=== PATIENT | female | born 1990 | race Caucasian/White ===

== ENCOUNTER 2021-11-29 12:15 | Emergency (ER) | payer OTHER, SELFPAY ==
[2021-11-29 12:59] VITALS: BP 145/70; PULSE 65; RESP 16; TEMP 36.4; O2SAT 100; BMI 30.2
--- NOTE | 2021-11-29 13:02 | ECG_ITS ---
Test Reason : cp Blood Pressure : / mmHG Vent. Rate : 062 BPM Atrial Rate : 062 BPM P-R Int : 146 ms QRS Dur : 084 ms QT Int : 402 ms P-R-T Axes : 042 051 038 degrees QTc Int : 408 ms Normal sinus rhythm Normal ECG No previous ECGs available Referred By: Generic ED Physician Electronically Signed By:JOE RECINOS
[2021-11-29] MEDS: 0.9 % Sodium Chloride 1,000 ML 999 ML IV (14:51)
[2021-11-29 15:14] LABS: MANUAL DIFF FLAG NO
[2021-11-29 15:26] LABS: Basophils Percent Auto 0.3 % (0-2); Eosinophils Percent Auto 1.2 % (0-4); Hematocrit 34.3 % (37.0-47.0); Hemoglobin 11.4 g/dl (12.0-16.0); Imm Gran Abs Auto 0.01 X10*3/uL (0.00-0.03); Imm Gran Pct Auto 0.3 % (0.0-0.4); Lymphocytes Absolute Auto 1.3 X10*3/uL (1.2-4.9); Lymphocytes Percent Auto 40.4 % (20-40); Mean Corpuscular HGB Conc 33.2 g/dl (31.0-35.0); Mean Corpuscular Hemoglobin 30.6 pg (27.0-33.0); Mean Corpuscular Volume 92.2 fL (80.0-98.0); Mean Platelet Volume 11.1 fL (9.4-12.3); Monocytes Absolute Auto 0.4 X10*3/uL (0.1-1.2); Monocytes Percent Auto 12.1 % (2-11); Neutrophils Absolute Auto 1.5 x10*3/uL (2.0-8.3); Neutrophils Percent Auto 45.7 % (45-73); Platelet Count 209 X10*3/uL (160-400); Red Blood Count 3.72 X10*6/uL (4.20-5.50); Red Cell Distribution Width 11.9 % (11.0-16.0); White Blood Count 3.2 X10*3/uL (4.8-10.8)
--- NOTE | 2021-11-29 15:34 | ED.GENADULT ---
HPI - General Adult General Chief complaint: General Medical Stated complaint: forearm pain/thigh pain/cold symptoms Time Seen by Provider: 11/29/21 14:10 Source: patient Mode of arrival: ambulatory History of Present Illness HPI narrative: 30-year-old female with no significant past medical history presenting to the ED complaining of generalized fatigue/malaise, myalgias, acute on chronic low back pain x few days. Reports her kids recently tested positive for COVID-19, has been testing daily and negative. Also reports recent RSV exposure, and is outside frequently for work, unknown tick or insect bites. Denies headache, vision change, weakness, numbness, abdominal pain, nausea/vomiting, CP/SOB, incontinence/retention Onset (ago): day(s) Related Data Previous Rx's Medication Instructions Recorded doxycycline hyclate 100 mg tablet 100 mg PO BID 7 days #14 tabs 11/29/21 Allergies Allergy/AdvReac Type Severity Reaction Status Date / Time fentanyl [Fentanyl] Allergy Mild RASH Verified 11/29/21 12:59 Penicillins Allergy Mild RASH Verified 11/29/21 12:59 Review of Systems Review of Systems: Constitutional: No Fever, No Chills, No Night Sweats, + Fatigue, + Malaise ENT/Mouth: No Hearing loss, No Ear Pain, No Nasal Congestion, No Sinus Pain, No Hoarseness, No sore throat, No Rhinorrhea, No Swallowing Difficulty Eyes: No Eye Pain, No Swelling, No Redness, No Vision Changes Cardiovascular: No Chest Pain, No SOB, No Edema, No Palpitations Respiratory: No Cough, No Sputum, No Dyspnea Gastrointestinal: No Nausea, No Vomiting, No Diarrhea, No Constipation, No Abdominal pain Genitourinary: No Dysuria, No Urinary Frequency, No Hematuria, No Urinary Incontinence/retention, No Urgency, No Flank Pain Musculoskeletal: No joint pain, + Myalgias, + Joint Swelling Skin: No Skin Lesions, No rash Neuro: No Weakness, No Numbness, No Dizziness, No Headache Yes all other systems are reviewed and are negative Constitutional: Constitutional: Reports as per [facility] Past Medical History Attestation statement: The following information was validated with the patient. Social History Social History Advance Directives: No Advance Directives Information Provided: Yes Physical Exam ED Vital Signs: Vital Signs - 24 hr 11/29/21 12:59 Temperature 97.5 F Pulse Rate 65 Respiratory Rate 16 Blood Pressure 145/70 H Pulse Oximetry 100 Oxygen Delivery Method Room Air BMI result Body Mass Index 30.2 Const General: cooperative, healthy appearing, comfortable and no acute distress Orientation/consciousness: patient oriented x3 Limitations: no limitations HENMT Head: Yes normal to inspection and Yes atraumatic Ears: hearing grossly normal bilaterally General nose exam: Normal external nose present Face and sinus: Yes normal facial exam Mouth: Normal oral and palatal mucosa present Throat: Yes posterior oropharynx normal, Yes tonsils normal and Yes uvula midline Eyes General: appearance normal, both eyes and all related structures EOM: EOMs intact bilaterally Neck Neck: Yes normal visual inspection and Yes no meningeal signs Resp Effort & Inspection: normal respiratory effort and no respiratory distress Auscultation: clear to auscultation bilaterally, no crackles, no rales, no rhonchi and no wheezes Cardio Rate: regular rate Heart sounds: S1 normal heart sound present and S2 normal heart sound present GI Inspection: Yes normal to inspection Palpation (GI): Soft to palpation, nontender, no guarding and not rigid General: Yes no CVA tenderness Back/Spine/Pelvis Other: No midline thoracic/lumbar spinous tenderness/step-off or deformity. + bilateral lumbar MSK tenderness Back: no CVA tenderness Skin Rashes: no rashes Wounds: no wounds Neuro Other: Strength intact throughout. No saddle anesthesia. Sensation intact to light touch. Neurovascular intact distally General: patient oriented x3, tone normal, moves all extremities, no meningeal signs, no focal motor deficits and CN's II-XI intact bilaterally Gait exam (Neuro): Normal gait present Motor exam (neuro): 5/5 motor strength present throughout Extrem Other: + chronic pedal edema, nonpitting General: Yes normal to inspection, Yes normal exam except as noted, Yes no joint enlargement and Yes no calf tenderness Course Course Course Narrative: -leukopenic to 3.2. H&H 11.4/34.3 (no available priors). Labs otherwise unremarkable -CRP minimally elevated to 1.67 -influenza/RSV/COVID-19 negative 1758--UA currently pending, patient like to be discharged prior to results, will call with positive results. With shared decision making when she patient on doxycycline 100 mg b.i.d. x7 days until Lyme studies result. Recommended patient follow-up with PCP for further testing/rheumatologic testing -1811--UA not infected Medical Decision Making MDM Narrative Medical decision making narrative: 30-year-old female with no significant past medical history presenting to the ED complaining of generalized fatigue/malaise, myalgias, acute on chronic low back pain x few days. On exam vital signs stable, NAD, nontoxic appearing, no focal neuro deficits, lungs CTA, no midline spinous tenderness or or red flag symptoms, no appreciable joint swelling/erythema or lymphadenopathy. Concern for metabolic abnormalities vs Lyme disease/tick-borne illness vs viral syndrome. Low suspicion for ACS or other infectious etiology Plan: Labs, UA, EKG, IVF, re-evaluate Medical Records Medical records reviewed: Yes I reviewed the patient's medical records. Lab Data Lab results reviewed: Yes I reviewed the patient's lab results. Result diagrams: 11/29/21 15:10 11/29/21 15:09 Labs: Lab Results 11/29/21 11/29/21 11/29/21 Range/Units 15:09 15:09 15:10 WBC 3.2 L (4.8-10.8) X10*3/uL RBC 3.72 L (4.20-5.50) X10*6/uL Hgb 11.4 L (12.0-16.0) g/dl Hct 34.3 L (37.0-47.0) % MCV 92.2 (80.0-98.0) fL MCH 30.6 (27.0-33.0) pg MCHC 33.2 (31.0-35.0) g/dl RDW 11.9 (11.0-16.0) % Plt Count 209 (160-400) X10*3/uL MPV 11.1 (9.4-12.3) fL Immature Gran % (Auto) 0.3 (0.0-0.4) % Neut % (Auto) 45.7 (45-73) % Lymph % (Auto) 40.4 H (20-40) % [place] % (Auto) 12.1 H (2-11) % Eos % (Auto) 1.2 (0-4) % Baso % (Auto) 0.3 (0-2) % Lymph # (Auto) 1.3 (1.2-4.9) X10*3/uL [place] # (Auto) 0.4 (0.1-1.2) X10*3/uL Eos # (Auto) 0.0 (0.0-0.4) X10*3/uL Baso # (Auto) 0.0 (0.0-0.2) X10*3/uL Abs Immat Gran (auto) 0.01 (0.00-0.03) X10*3/uL Absolute Neuts (auto) 1.5 L (2.0-8.3) x10*3/uL Absolute Nucleated RBC 0.000 (0.0-0.012) X10*3/uL Nucleated RBC % (auto) 0.0 (0.0-0.2) /100WBC ESR (0-20) MM/HR Sodium 142 (135-145) mmol/L Potassium 4.0 (3.3-5.1) mmol/L Chloride 107 (96-108) mmol/L Carbon Dioxide 26 (22-29) mmol/L Anion Gap 13 (12-20) BUN 8 L (9-16) mg/dL Creatinine 0.70 (0.5-1.4) mg/dL Estim Creat Clear Calc 132.3 Estimated GFR > 60 Random Glucose 84 (60-115) mg/dL Calcium 8.6 (8.4-10.2) mg/dL Magnesium 1.8 (1.6-2.6) mg/dL Total Bilirubin < 0.2 (0.0-1.0) mg/dL Direct Bilirubin < 0.2 (0.0-0.5) mg/dL AST 13 (5-31) U/L ALT 11 (0-31) U/L Alkaline Phosphatase 47 (39-117) U/L Total Creatine Kinase 59 (26-140) U/L C-Reactive Protein 1.67 H (< or = 0.50) mg/dL Total Protein 6.1 L (6.5-8.0) g/dL Albumin 3.7 (3.5-5.0) g/dL Urine Color Urine Appearance Urine pH (5.0-8.0) Ur Specific [place] (1.005-1.025) Urine Protein (Neg-Trace) mg/dL Urine Glucose (UA) (Negative) mg/dL Urine Ketones (Negative) mg/dL Urine Blood (Negative) Urine Nitrite (Negative) Ur Leukocyte Esterase (Negative) Urine RBC (0-2) /HPF Urine WBC (0-5) /HPF Ur Squamous Epith Cells (0-2) /HPF Urine Bacteria (None Seen) Hyaline Casts (0-2) /LPF Urine Test (NEGATIVE) Influenza Type A (PCR) NEGATIVE (Negative) Influenza Type B (PCR) NEGATIVE (Negative) RSV RNA Qual (PCR) NEGATIVE (Negative) SARS-CoV-2 RNA (RT-PCR) NEGATIVE (Negative) 11/29/21 11/29/21 11/29/21 Range/Units 16:25 17:00 17:00 WBC (4.8-10.8) X10*3/uL RBC (4.20-5.50) X10*6/uL Hgb (12.0-16.0) g/dl Hct (37.0-47.0) % MCV (80.0-98.0) fL MCH (27.0-33.0) pg MCHC (31.0-35.0) g/dl RDW (11.0-16.0) % Plt Count (160-400) X10*3/uL MPV (9.4-12.3) fL Immature Gran % (Auto) (0.0-0.4) % Neut % (Auto) (45-73) % Lymph % (Auto) (20-40) % [place] % (Auto) (2-11) % Eos % (Auto) (0-4) % Baso % (Auto) (0-2) % Lymph # (Auto) (1.2-4.9) X10*3/uL [place] # (Auto) (0.1-1.2) X10*3/uL Eos # (Auto) (0.0-0.4) X10*3/uL Baso # (Auto) (0.0-0.2) X10*3/uL Abs Immat Gran (auto) (0.00-0.03) X10*3/uL Absolute Neuts (auto) (2.0-8.3) x10*3/uL Absolute Nucleated RBC (0.0-0.012) X10*3/uL Nucleated RBC % (auto) (0.0-0.2) /100WBC ESR 12 (0-20) MM/HR Sodium (135-145) mmol/L Potassium (3.3-5.1) mmol/L Chloride (96-108) mmol/L Carbon Dioxide (22-29) mmol/L Anion Gap (12-20) BUN (9-16) mg/dL Creatinine (0.5-1.4) mg/dL Estim Creat Clear Calc Estimated GFR Random Glucose (60-115) mg/dL Calcium (8.4-10.2) mg/dL Magnesium (1.6-2.6) mg/dL Total Bilirubin (0.0-1.0) mg/dL Direct Bilirubin (0.0-0.5) mg/dL AST (5-31) U/L ALT (0-31) U/L Alkaline Phosphatase (39-117) U/L Total Creatine Kinase (26-140) U/L C-Reactive Protein (< or = 0.50) mg/dL Total Protein (6.5-8.0) g/dL Albumin (3.5-5.0) g/dL Urine Color Yellow Urine Appearance Clear Urine pH 7.0 (5.0-8.0) Ur Specific [place] 1.010 (1.005-1.025) Urine Protein Negative (Neg-Trace) mg/dL Urine Glucose (UA) Negative (Negative) mg/dL Urine Ketones Negative (Negative) mg/dL Urine Blood Negative (Negative) Urine Nitrite Negative (Negative) Ur Leukocyte Esterase Small (1+) H (Negative) Urine RBC 0-2 (0-2) /HPF Urine WBC 0-5 (0-5) /HPF Ur Squamous Epith Cells 3-5 (0-2) /HPF Urine Bacteria Trace (None Seen) Hyaline Casts 0-2 (0-2) /LPF Urine Test NEGATIVE (NEGATIVE) Influenza Type A (PCR) (Negative) Influenza Type B (PCR) (Negative) RSV RNA Qual (PCR) (Negative) SARS-CoV-2 RNA (RT-PCR) (Negative) Discharge Plan Discharge Clinical Impression: Fatigue, Myalgia Patient Disposition: Home, Self-Care Instructions: Musculoskeletal Pain (ED), Fatigue (ED) Additional Instructions: Your blood work was reassuring today in the emergency department. You have a low white blood cell count with mild anemia. Please have close follow-up with her doctor. We sent off tick-borne studies as well as Lyme disease, these results should be back in a few days, we will call you with positive results only. Start taking doxycycline as prescribed which will treat Lyme, if her Lyme studies come back positive we will extend the course for full treatment. You tested negative for COVID-19, the flu, and RSV. Hydrate, rest Take Tylenol Motrin as needed. Please follow-up with her doctor Prescriptions: New doxycycline hyclate 100 mg tablet 100 mg PO BID 7 Days Qty: 14 0RF Referrals: Prudence Ford MD [Primary Care Provider] - 3 days
[2021-11-29 15:41] LABS: Bilirubin Direct < 0.2 mg/dL (0.0-0.5)
[2021-11-29 15:42] LABS: Alanine Aminotransferase 11 U/L (0-31); Albumin Level 3.7 g/dL (3.5-5.0); Alkaline Phosphatase 47 U/L (39-117); Anion Gap 13 (12-20); Aspartate Amino Transferase 13 U/L (5-31); Bilirubin Total < 0.2 mg/dL (0.0-1.0); Blood Urea Nitrogen 8 mg/dL (9-16); Calcium 8.6 mg/dL (8.4-10.2); Carbon Dioxide 26 mmol/L (22-29); Chloride 107 mmol/L (96-108); Creatinine Clr Calc Pharmacy 132.3; Estimated Glomerular Filt Rate > 60; Glucose Random 84 mg/dL (60-115); Magnesium 1.8 mg/dL (1.6-2.6); Sodium 142 mmol/L (135-145); Total Protein 6.1 g/dL (6.5-8.0)
[2021-11-29 15:55] LABS: Influenza A PCR NEGATIVE (Negative); Influenza B PCR NEGATIVE (Negative); Resp Syncy Virus RNA Qual PCR NEGATIVE (Negative); SARS COV2 PCR INHOUSE NEGATIVE (Negative)
[2021-11-29 16:08] LABS: C Reactive Protein 1.67 mg/dL (< or = 0.50)
[2021-11-29] MEDS: Ketorolac Tromethamine 15 MG/ML VIAL IVPUSH (16:23)
[2021-11-29 17:10] LABS: UPreg QC Valid YES; Urine Pregnancy NEGATIVE (NEGATIVE)
[2021-11-29 17:14] LABS: Appearance Urine Clear; Color Urine Yellow; Glucose Urine UA Negative (Negative); Leukocyte Esterase Urine Small (1+) (Negative); Nitrite Urine Negative (Negative); Urine Blood Negative (Negative); Urine Ketones Negative (Negative); Urine Protein Negative (Neg-Trace)
[2021-11-29 17:16] LABS: UACC Culture Trigger YES
[2021-11-29 17:22] LABS: Erythrocyte Sedimentation Rate 12 MM/HR (0-20)
[2021-11-29 18:00] LABS: Bacteria Urine Trace (None Seen); Hyaline Casts Urine 0-2 /LPF (0-2); RBC Urine 0-2 /HPF (0-2); WBC Urine 0-5 /HPF (0-5)
[2021-11-30 21:10] LABS: Lyme Abs Screen <0.90 index
[2021-12-01 22:37] LABS: A. Phagocytphilium DNA,RT-PCR NOT DETECTED (NOT DETECTED); Babesia Microti DNA, RT-PCR NOT DETECTED (NOT DETECTED); Borrelia Miyamotoi,DNA RT-PCR NOT DETECTED (NOT DETECTED); E.Chaffeensis DNA RT-PCR NOT DETECTED (NOT DETECTED); Lyme(Borrelia ssp)DNA RT-PCR NOT DETECTED (NOT DETECTED)
[2021-12-02 10:56] LABS: Source-Tick borne disease BLOOD
== END 2021-11-29 18:18 | disposition home or self-care (01) ==
PROVIDERS: Physician Assistant; Emergency Provider Emergency Medicine; PCP Internal Medicine
DX: R53.83 Other fatigue (principal); M79.10 Myalgia, unspecified site; R53.81 Other malaise; Z20.822 Contact with and (suspected) exposure to COVID-19
CPT/HCPCS: 0241U; 80048; 80076; 81001; 81025; 82550; 83735; 85025; 85652; 86140; 86617; 86618; 87086; 87798; 87801; 93005; 96361; 96374; 99284; J1885

== ENCOUNTER 2022-06-01 16:09 | Emergency (ER) | payer OTHER, SELFPAY ==
--- NOTE | 2022-06-01 17:04 | ED_ITS ---
HPI - Dental/Oral General Chief complaint: Dental/Oral Stated complaint: ?Dental infection Time Seen by Provider: 06/01/22 17:08 Source: patient Mode of arrival: ambulatory Limitations: no limitations History of Present Illness HPI Narrative: 31yoF presenting to the ED with complaints of right lower dental pain with purulent discharge. Had dental work at [facility] on Saturday. Pt reports she is a Nurse. She is currently on clindamycin and no symptomatic relief. She is having worsening pain and drainage. Reports associated chills. She had a fever of 101 earlier today. Reports she is taking Motrin Tylenol around the clock. She denies any trouble swallowing or breathing. MD Complaint: tooth pain Teeth map: 1. 2. Onset (ago): day(s) (A few days worse today) Duration: worsening Severity: moderate Relieving factors: nothing Exacerbating factors: nothing Context: history of dental caries, poor dental care and other (Recent dental procedure) Associated symptoms: gum swelling Treatment prior to arrival: other (She is trying Motrin, Tylenol around the clock and clindamycin no symptomatic) Related Data Previous Rx's Medication Instructions Recorded doxycycline hyclate 100 mg tablet 100 mg PO BID 7 days #14 tabs 11/29/21 acetaminophen 500 mg tablet 1,000 mg PO QID PRN fever or pain 06/01/22 (Tylenol Extra Strength) #14 tabs clindamycin HCl 300 mg capsule 300 mg PO TID dental infection 10 06/01/22 days #30 caps ibuprofen 800 mg tablet 800 mg PO Q8H PRN pain #14 tabs 06/01/22 oxycodone 5 mg tablet 5 mg PO Q6H PRN pain #14 tabs 06/01/22 Allergies Allergy/AdvReac Type Severity Reaction Status Date / Time fentanyl [Fentanyl] Allergy Mild RASH Verified 06/01/22 17:10 Penicillins Allergy Mild RASH Verified 06/01/22 17:10 Review of Systems Review of Systems: Constitutional : No Fever, No Chills, No changes in PO intake, No difficulty speaking, no recent dental procedure, no heat or cold intolerance while eating, no recent face trauma, ENT/Mouth : + Dental pain, No Sore throat, No Jaw pain, No throat swelling, No swallowing difficulty, no change in voice, No facial swelling, no drooling, no trismus, no bleeding, no lacerations, no tongue swelling, gum swelling, Eyes: No Eye Pain, No periorbital Swelling Cardiovascular : No Chest Pain, No SOB Respiratory : No Cough, No Sputum, No Wheezing, No Smoke Exposure, No Dyspnea Gastrointestinal : No Nausea, No Vomiting, No Diarrhea Genitourinary : No Dysuria Musculoskeletal : No Myalgias Skin : No rash, no facial swelling or redness, Neuro : No Weakness, No Numbness, No Headache Yes all other systems are reviewed and are negative [facility] Past Medical History Attestation statement: The following information was validated with the patient. Source: old records reviewed and nursing notes reviewed Social History Social History Advance Directives: No Advance Directives Information Provided: No Physical Exam Vital Signs: Vital Signs: Last Vital Signs Temp 98.0 F 06/01/22 17:05 Pulse 72 06/01/22 17:05 Resp 18 06/01/22 17:05 BP 147/85 H 06/01/22 17:05 Pulse Ox 100 06/01/22 17:05 O2 Del Method 06/01/22 17:05 BMI result Body Mass Index 31.1 vital signs have been reviewed as normal and appeared to be correct. Blood pressure normal. Heart rate normal. Respiration rate normal. Temperature normal. Oxygen saturation normal. Appearance: Alert. Oriented X3. No acute distress. Head: Normal external exam. Normocephalic. Atraumatic. Eyes: PERRLA. EOMI. Conjunctiva and sclera normal. Eyelids normal. ENT: EAC normal. TM's Normal. Pharynx normal. Uvula midline. Moist mucous membranes. No trismus noted. No drooling noted. No muffled voice noted. Dentition: Patient with poor dentition throughout with multiple old fractured teeth with multiple dental caries. Gingival within normal limits. No fluctuance. Not consistent with peritonsillar abscess. Not consistent with dental abscess. No salivary duct obstruction noted. Neck: Normal inspection. Neck supple. FROM. No adenopathy. Thyroid Normal. No meningeal signs. No neck mass noted. Trachea midline. CVS: Normal heart rate and rhythm. Heart sound normal. No murmurs noted. Pulses normal throughout. Respiratory: No respiratory distress. Painless inspiration. Breath sounds normal. No wheezes/rales/rhonchi noted. Chest nontender. No accessory muscle usage noted or decreased air movement noted. Back: Full range of motion noted. Skin: Skin warm and dry. Normal skin color. Normal skin turgor. No rashes/lesions/lacerations noted. Extremities:Extremities exhibit normal range of motion. Extremities nontender. Neuro: Oriented X 3. No motor deficit. No sensory deficit. Reflexes normal. Course Course Course Narrative: Patient multiple dental caries throughout with old dental fractures. She does have sutures in place to her extractions. No signs of abscess or infection or purulent drainage noted. No trismus/draining/stridor. Not consistent with ludwigs angina. Therefore at this time will DC home antibiotics and symptomatic treatment instructions return if any new or worsening symptoms follow up with primary care provider/oral surgeon. Patient understands agrees with this plan. Discharge Plan Discharge Clinical Impression: Pain due to dental caries, Pain, dental Patient Disposition: Home, Self-Care Instructions: Toothache (ED), Tooth Extraction (DC) Prescriptions: New clindamycin HCl 300 mg capsule 300 mg PO TID 10 Days Qty: 30 0RF oxycodone 5 mg tablet 5 mg PO Q6H PRN (Reason: pain) Qty: 14 0RF Rx Instructions: Partial Fill upon patient request. acetaminophen [Tylenol Extra Strength] 500 mg tablet 1,000 mg PO QID PRN (Reason: fever or pain) Qty: 14 0RF ibuprofen 800 mg tablet 800 mg PO Q8H PRN (Reason: pain) Qty: 14 0RF No Action doxycycline hyclate 100 mg tablet 100 mg PO BID 7 Days Qty: 14 0RF Referrals: Prudence Ford MD [Primary Care Provider] - 2 days Interventions: ED Discharge Assessment Last Done: 06/01/22 17:11
[2022-06-01 17:05] VITALS: BP 147/85; PULSE 72; RESP 18; TEMP 36.7; O2SAT 100; BMI 31.1
== END 2022-06-01 17:20 | disposition home or self-care (01) ==
LOC: HO.ED 17:16
PROVIDERS: Emergency Provider Emergency Medicine; PCP Internal Medicine
DX: K08.89 Other specified disorders of teeth and supporting structures (principal); K02.9 Dental caries, unspecified
CPT/HCPCS: 99282; 99283

== ENCOUNTER 2022-11-24 11:35 | Emergency (ER) | payer OTHER, SELFPAY ==
--- NOTE | ~2022-11-24 | XR_ITS ---
EXAMINATION: XR CHEST CLINICAL INFORMATION: Shortness of breath COMPARISON: None available. TECHNIQUE: 2 views of the chest were obtained. FINDINGS: No significant abnormality is noted involving the heart, lungs, mediastinum, bony thorax or soft tissues. Mild degenerative changes of the spine. XR/XR chest 2V IMPRESSION: No evidence for acute disease in the chest.
[2022-11-24 11:39] VITALS: BP 168/83; PULSE 80; RESP 16; TEMP 36.8; O2SAT 98; BMI 34.5
--- NOTE | 2022-11-24 11:40 | ED.GENADULT ---
HPI - General Adult General Chief complaint: Dyspnea Stated complaint: SOB Time Seen by Provider: 11/24/22 13:35 Source: patient and other (Significant other) Mode of arrival: ambulatory Limitations: no limitations History of Present Illness HPI narrative: 31-year-old female who presents emergency department for evaluation of rhinorrhea, shortness of breath, cough, myalgias, arthralgias and fever. 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 She states that there is a viral infection that is going around the unit. She states she has been sick for 3 or 4 days with a runny nose, low-grade fever, cough productive of green to yellow creamy sputum, chest pain, shortness of breath and dyspnea on exertion. She also complains of myalgias and arthralgias. Today her symptoms got worse and she felt more short of breath . Her O2 saturation dropped to 92%. She was using albuterol inhaler with minimal relief for symptoms. She states she took multiple COVID test at work in these were negative. Related Data Previous Rx's Medication Instructions Recorded doxycycline hyclate 100 mg tablet 100 mg PO BID 7 days #14 tabs 11/29/21 acetaminophen 500 mg tablet 1,000 mg PO QID PRN fever or pain 06/01/22 (Tylenol Extra Strength) #14 tabs clindamycin HCl 300 mg capsule 300 mg PO TID dental infection 10 06/01/22 days #30 caps ibuprofen 800 mg tablet 800 mg PO Q8H PRN pain #14 tabs 06/01/22 oxycodone 5 mg tablet 5 mg PO Q6H PRN pain #14 tabs 06/01/22 albuterol sulfate 90 mcg/actuation 2 puff inhalation Q4-6H PRN 11/24/22 aerosol inhaler (Ventolin HFA) shortness of breath or wheezing #8.5 grams doxycycline hyclate 100 mg tablet 100 mg PO Q12H 7 days #14 tabs 11/24/22 prednisone 20 mg tablet 60 mg PO DAILY 5 days #15 tabs 11/24/22 Allergies Allergy/AdvReac Type Severity Reaction Status Date / Time fentanyl [Fentanyl] Allergy Mild RASH Verified 11/24/22 11:39 Penicillins Allergy Mild RASH Verified 11/24/22 11:39 Review of Systems Review of Systems: Yes all other systems are reviewed and are negative [facility] Past Medical History [facility] Narrative: Social history: 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 She does smoke cigarettes. She denies alcohol use. She denies drug use. Medical History Hypothyroidism Social History Social History Alcohol intake: never Smoked in Last 30 Days: No Use of substances other than those prescribed or required for medical reasons: No Advance Directives: No Advance Directives Information Provided: Yes Patient : No Physical Exam ED Vital Signs: Vital Signs - 24 hr 11/24/22 11:39 11/24/22 12:57 Temperature 98.2 F 97.7 F Pulse Rate 80 72 Respiratory Rate 16 18 Blood Pressure 168/83 H 144/76 H Pulse Oximetry 98 98 Oxygen Delivery Method Room Air Room Air BMI result Body Mass Index 34.5 Vital signs revealed an elevated blood pressure of 168/82 otherwise were unremarkable including an O2 saturation of 98% on room air Exam: General: Awake, alert in no distress, patient does have mild dyspnea Head: Normocephalic, atraumatic EENT: PERRL, Lids normal, sclera normal, conjunctiva normal, nose normal , ears normal, throat without erythema or exudates Neck: Supple, no adenopathy, trachea midline and nontender Lung: Patient has diffuse wheezing with diffuse rhonchi, no rales, breath sounds are symmetric bilaterally Chest: symmetric movement, nontender Heart: regular rate and rhythm, normal S1, S2 no murmurs or rubs Abdomen: soft, non-tender, nondistended, normal bowel sounds Back: no vertebral tenderness, no CVAT Extremities: no deformities, moves all extremities symmetrically Skin: no rashes, no lesion, normal color and warmth Neuro: Awake, alert, oriented, normal speech,, moves all extremities symmetrically Psych: Pleasant, cooperative Course Course Course Narrative: 31-year-old female presents for evaluation shortness of breath and cough. She reports that she has been sick for last 2 days. She reports she has tested negative COVID 3 times. She reports recently quitting smoking. Plan for chest x-ray. She is wheezy on exam Medications Administered Discontinued Medications Generic Name Dose Route Start Last Admin Trade Name Freq PRN Reason Stop Dose Admin Albuterol/Ipratropium 3 ml 11/24/22 12:49 11/24/22 13:01 Albuterol/Iprat 2.5/0.5mg 3 Ml Ampul.Neb INHALE 11/24/22 12:50 3 ml ONCE ONE Administration Medical Decision Making Medical Decision Making MDM Narrative: 31-year-old female with history of hypothyroidism who presents emergency department for evaluation of several days of fever, cough, chest pain, shortness of breath, dyspnea exertion, myalgias, arthralgias with symptoms getting worse today. 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 She has had 3- COVID tests at work. Patient has been using an albuterol inhaler with some improvement of her symptoms. The patient was hypertensive but otherwise vital signs were normal including a normal O2 saturation. Lung exam did reveal diffuse wheezing and rhonchi with symmetric breath sounds. Chest x-ray revealed no acute infiltrates. The patient is a smoker. Patient most likely has a viral infection but may now also have a bacterial bronchitis causing bronchospasm. Patient was treated in the emergency department with prednisone 80 mg orally, doxycycline 100 mg orally and DuoNeb x1. I did evaluate the patient after DuoNeb in she still is wheezing therefore I ordered albuterol inhaler 4 puffs with a spacer. Patient will be discharged home and treated with doxycycline 100 mg q.12 hours x7 days, prednisone 60 mg once a day for 5 days and albuterol inhaler 2-4 puffs with spacer 4 to 6 times a 4 to 6 times a day. She was given a work note not return to work for at least 4 days Differential Diagnosis Differential Diagnoses: The differential diagnosis associated with the presentation includes Differential diagnosis includes was not limited to pneumonia, bronchitis, bacterial infection viral infection, Independent Interpretation I performed an independent interpretation of an: Plain X-Ray Interpretation: My independent review of the patient's chest x-ray is as follows: No acute disease, no infiltrates noted Radiology Impression Discussion of test interpretation with radiology: I have reviewed the radiologist's reading. Radiologist Impression: XR chest 2V IMPRESSION: No evidence for acute disease in the chest. Dictated By:Melanie Stafford MD Independent Historian Clinical information obtained from an independent historian. History obtained from or confirmed by: Other (Significant other) Discharge Plan Discharge Clinical Impression: Acute bronchitis with bronchospasm Patient Disposition: Home, Self-Care Instructions: Acute Bronchitis (ED) Additional Instructions: Your chest x-ray did not reveal any obvious pneumonia. Your lung exam revealed diffuse wheezing and rhonchi suggesting that you have a bronchial infection (bronchitis). You may have a viral illness but since your smoker, I am concerned that there may also be a bacterial component therefore I am treating you with doxycycline 100 mg every 12 hours for 7 days. Take prednisone 20 mg pills, 3 pills once a day for 5 days. While you are taking prednisone, do not take any NSAIDs (Motrin, Advil, ibuprofen, Aleve, naproxen). Use the albuterol inhaler with the spacer, 2-4 puffs with a spacer every 4-6 hours as needed for shortness of breath and wheezing. Take Tylenol (acetaminophen) 500 mg pills, 2 pills every 6 hours as needed for pain or fever. Follow-up with your doctor in 2 days. Please return to the emergency department if your symptoms get worse or if you develop any symptoms that are concerning to you. Please see the work note Prescriptions: New prednisone 20 mg tablet 60 mg PO DAILY 5 Days Qty: 15 0RF albuterol sulfate [Ventolin HFA] 90 mcg/actuation HFA aerosol inhaler 2 puff inhalation Q4-6H PRN (Reason: shortness of breath or wheezing) Qty: 8.5 0RF doxycycline hyclate 100 mg tablet 100 mg PO Q12H 7 Days Qty: 14 0RF No Action doxycycline hyclate 100 mg tablet 100 mg PO BID 7 Days Qty: 14 0RF clindamycin HCl 300 mg capsule 300 mg PO TID 10 Days Qty: 30 0RF oxycodone 5 mg tablet 5 mg PO Q6H PRN (Reason: pain) Qty: 14 0RF Rx Instructions: Partial Fill upon patient request. acetaminophen [Tylenol Extra Strength] 500 mg tablet 1,000 mg PO QID PRN (Reason: fever or pain) Qty: 14 0RF ibuprofen 800 mg tablet 800 mg PO Q8H PRN (Reason: pain) Qty: 14 0RF Stand Alone Forms: Work/School Release
[2022-11-24 12:57] VITALS: BP 144/76; PULSE 72; RESP 18; TEMP 36.5; O2SAT 98
[2022-11-24] MEDS: Albuterol/Iprat 2.5/0.5MG 3 ML AMPUL.NEB INHALE (13:01)
--- NOTE | 2022-11-24 13:01 | PC.NURSE ---
pt a&ox3, vss, pt comes in after being sick for the past few days. 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 pt c/o SOB, pain on inspiration, 5/10 chest pain/ribcage pain. pt recently quit smoking cigarettes a few days ago but denies that the symptoms got worse after quitting. wheezing and crackles noted upon auscultation. pt currently sitting in a tripod position during respiratory treatment. RT also bedside.
[2022-11-24] MEDS: Doxycycline Monohydrate 100 MG CAPSULE PO (14:15)
[2022-11-24] MEDS: Albuterol Sulfate 90 MCG 8 GM INHALER 4 PUFF INHALE (14:15)
[2022-11-24] MEDS: predniSONE 20 MG TABLET 80 MG PO (14:15)
--- NOTE | 2022-11-24 14:34 | PC.NURSE ---
pt a&ox3, speaking in full sentences, pt was educated on medications given and meds that she is being discharged with, inhailer given to patient and she was able to return demonstrate how to use it. Family at bedside, pt to be discharged home and understands to return to ed if needed.
== END 2022-11-24 14:36 | disposition home or self-care (01) ==
PROVIDERS: Emergency Provider Emergency Medicine Emergency Medical Services
DX: J20.9 Acute bronchitis, unspecified (principal); J34.89 Other specified disorders of nose and nasal sinuses; R06.02 Shortness of breath; R05.9 Cough, unspecified; M79.10 Myalgia, unspecified site; R50.9 Fever, unspecified; M25.50 Pain in unspecified joint; E03.9 Hypothyroidism, unspecified
CPT/HCPCS: 71046; 99283; 99284

== ENCOUNTER 2023-04-10 11:09 | Emergency (ER) | payer OTHER, SELFPAY ==
--- NOTE | ~2023-04-10 | XR_ITS ---
EXAMINATION: XR CHEST CLINICAL INFORMATION: Cough COMPARISON: 11/24/2022 TECHNIQUE: 2 views of the chest were obtained. FINDINGS: Focal opacity left midlung not present previously. Heart, mediastinum and vascularity within normal limits. No consolidations or effusions. Bony structures are intact. XR/XR chest 2V IMPRESSION: Left midlung focal opacity, possibly pneumonia. Short-term radiographic follow-up recommended.
[2023-04-10 11:12] VITALS: BP 136/85; PULSE 76; RESP 18; TEMP 36.6; O2SAT 96; BMI 42.4
--- NOTE | 2023-04-10 11:12 | ECG_ITS ---
Test Reason : cp Blood Pressure : / mmHG Vent. Rate : 068 BPM Atrial Rate : 068 BPM P-R Int : 154 ms QRS Dur : 094 ms QT Int : 402 ms P-R-T Axes : 036 030 015 degrees QTc Int : 427 ms Normal sinus rhythm Normal ECG When compared with ECG of 29-NOV-2021 12:53, No significant change was found Referred By: Taina Block Electronically Signed By:ANDREW MARINO
--- NOTE | 2023-04-10 11:13 | ED_ITS ---
HPI - Chest Pain General Chief Complaint: Upper Respiratory Symptoms Stated Complaint: Chest pain, shortness of breath Time Seen by Provider: 04/10/23 11:20 Source: patient Mode of arrival: ambulatory Limitations: no limitations History of Present Illness HPI narrative: ??This is a 32 year-old female presenting with fatigue, malaise, myalgias, fevers T max 102, chills, nausea, vomiting, productiv cough, chest discomfort/ pain w/ cough X few days worsening. ? + known sick contacts, RSV going around work, and son was sick w/ similar sx..? Reports still eating and drinking.? No, shortness of breath, abdominal pain, vision changes, dizziness or weakness. Related Data Previous Rx's Medication Instructions Recorded doxycycline hyclate 100 mg tablet 100 mg PO BID 7 days #14 tabs 11/29/21 acetaminophen 500 mg tablet 1,000 mg (2 x 500 mg) PO QID PRN 06/01/22 (Tylenol Extra Strength) fever or pain #14 tabs clindamycin HCl 300 mg capsule 300 mg PO TID dental infection 10 06/01/22 days #30 caps ibuprofen 800 mg tablet 800 mg PO Q8H PRN pain #14 tabs 06/01/22 oxycodone 5 mg tablet 5 mg PO Q6H PRN pain #14 tabs 06/01/22 doxycycline hyclate 100 mg tablet 100 mg PO Q12H 7 days #14 tabs 11/24/22 prednisone 20 mg tablet 60 mg (3 x 20 mg) PO DAILY 5 days 11/24/22 #15 tabs albuterol sulfate 90 mcg/actuation 2 inh inhalation Q4-6H PRN 04/10/23 breath activated powder inhaler shortness of breath or wheezing #1 ea doxycycline hyclate 100 mg capsule 100 mg PO BID 10 days #20 caps 04/10/23 ketorolac 10 mg tablet 10 mg PO TID PRN pain 5 days #15 04/10/23 tabs prednisone 20 mg tablet 40 mg (2 x 20 mg) PO DAILY 5 days 04/10/23 #10 tabs Allergies Allergy/AdvReac Type Severity Reaction Status Date / Time fentanyl [Fentanyl] Allergy Mild RASH Verified 11/24/22 11:39 Penicillins Allergy Mild RASH Verified 11/24/22 11:39 Review of Systems Review of Systems: Constitutional : No Weight loss, + Fever, No Chills, + Fatigue, + Malaise ENT/Mouth : No sore throat, No Rhinorrhea Eyes: No Eye Pain, No Swelling, No Redness Cardiovascular : + Chest Pain, No SOB, No Dyspnea on Exertion, No Orthopnea, No Edema, No Palpitations Respiratory : + Cough, + Sputum, No Wheezing Gastrointestinal : + Nausea, + Vomiting, No Diarrhea, No Constipation, No abdominal Pain, No Hematochezia, No Melena Genitourinary : No Dysuria, No Urinary Frequency, No Hematuria, Musculoskeletal : No joint pain, + Myalgias, No Joint Swelling Skin : No Skin Lesions, No rash Neuro : No Weakness, No Numbness, No Dizziness, No Headache Psych : No Anxiety/Panic, No Depression All other systems reviewed and are negative Yes all other systems are reviewed and are negative COUNT INCLUDES [facility] Past Medical History Attestation statement: The following information was validated with the patient. Source: old records reviewed and nursing notes reviewed Medical History Hypothyroidism Social History Social History Alcohol intake: never Advance Directives: No Advance Directives Information Provided: No Physical Exam Vital Signs: Vital Signs: Last Vital Signs Temp 97.8 F 04/10/23 11:12 Pulse 76 04/10/23 11:12 Resp 18 04/10/23 11:12 BP 136/85 04/10/23 11:12 Pulse Ox 96 04/10/23 11:12 O2 Del Method Room Air 04/10/23 11:12 BMI result Body Mass Index 42.4 Vital signs stable Appearance: Alert.? Oriented X3.? No acute distress.? Head: Normocephalic, atraumatic, no step-offs or deformities Eyes: Pupils equal, round and reactive to light.? ENT: Pharynx normal.? Neck: Normal inspection.? Neck supple.? CVS: Normal heart rate and rhythm.? Pulses normal.? Respiratory: No respiratory distress.? Breath sounds wheezing throughout .? Abdomen: Soft and nontender.? Skin: Skin warm and dry.? Normal skin color.? Normal skin turgor.? Extremities: No lower extremity edema.? No calf ttp. 5/5 strength to bilateral upper and lower extremities Neuro: Oriented X 3.? No motor deficit.? No sensory deficit. CN 2-12 intact Course Course Course Narrative: RME: 32yo F w no sig PMHx c/o chills, fever Tmax 102, productive cough, CP worse with coughing and SOB x3 days. Admits was exposed to RSV EKG, Viral testing, CXR ordered Full HPI, ROS and PE to be performed by primary ED provider. Reevaluation(s) Reevaluation #1: Patient noted to be positive for influenza and x-ray showing left mid lobe focal opacity question pneumonia will treat with doxycycline, prednisone, albuterol. Educated patient on diagnosis and treatment plan, answered all question, patient verbalizes understanding. At this time patient will be discharged home, advised to return with new or worsening symptoms. Educated on worrisome signs and symptoms and when to return. At this time I feel comfortable discharge home. Time: 12:18 Medications Administered Discontinued Medications Generic Name Dose Route Start Last Admin Trade Name Freq PRN Reason Stop Dose Admin Dexamethasone Sodium Phosphate 10 mg 04/10/23 11:35 04/10/23 11:43 Dexamethasone Sod Phosphate 10 Mg/Ml Vial IVPUSH 04/10/23 11:36 10 mg ONCE ONE Administration Ketorolac Tromethamine 15 mg 04/10/23 11:40 04/10/23 11:43 Ketorolac Tromethamine 15 Mg/Ml Vial IM 04/10/23 11:41 15 mg ONCE ONE Administration Medical Decision Making Medical Decision Making [facility] Narrative: ??32-year-old female presenting with viral symptoms ongoing for the past few d ays. + sick contacts ??Physical examination with diffuse wheezing. ?This is likely flu versus COVID versus RSV versus other viral illness? vs pna. Unlikely, PE, ACS, disection, respiratory distress, meningitis, encephalitis, acute abdomen, appendicitis, diverticulitis, pancreatitis, cholecystitis, obstruction. Wheezing likely secondary to viral illness. Versus reactive airway disease Plan- viral test? Differential Diagnosis Differential Diagnoses: The differential diagnosis associated with the presentation includes ?This is likely flu versus COVID versus RSV versus other viral illness? vs pna. Unlikely, PE, ACS, disection, respiratory distress, meningitis, encephalitis, acute abdomen, appendicitis, diverticulitis, pancreatitis, cholecystitis, obstruction. Wheezing likely secondary to viral illness. Versus reactive airway disease Admission/Observation Consideration of admission/observation: Escalation of care including admission/observation considered Unlikely Lab Data Labs: Lab Results 04/10/23 Range/Units 11:19 Influenza Type A (PCR) POSITIVE A (Negative) Influenza Type B (PCR) NEGATIVE (Negative) RSV RNA Qual (PCR) NEGATIVE (Negative) SARS-CoV-2 RNA (RT-PCR) NEGATIVE (Negative) Independent Interpretation I performed an independent interpretation of an: EKG (ventricular rate of 68, NE normal, QRS normal, QT/QTC normal. EKG normal sinus rhythm no ST elevations or inversions concerning for acute ischemia.) and Plain X-Ray (XR/XR chest 2V IMPRESSION: Left midlung focal opacity, possibly pneumonia. Short-term radiographic follow-up recommended.) Discharge Plan Discharge Clinical Impression: Influenza, Pneumonia Patient Disposition: Home, Self-Care Instructions: Influenza (ED) Additional Instructions: Take your medications as prescribed. If you were prescribed antibiotics today, it is important that you take your medication to their entirety, do not skip any doses, do not finish them early. Follow-up with your primary care provider this week. Return to the emergency department with new or worsening symptoms. Such as fevers, chills, chest pain, shortness of breath, nausea, vomiting, dizziness, headache, vision changes, lethargy In case of emergency call 911 Toradol has been sent to your pharmacy, you tolerated this well in the department. Please take this as prescribed do not take this with ibuprofen, or other NSAIDs, do not mix this with alcohol. Side effects of this medication including increased risk for bleeding and possible kidney injury. XR/XR chest 2V IMPRESSION: Left midlung focal opacity, possibly pneumonia. Short-term radiographic follow-up recommended. Prescriptions: New albuterol sulfate 90 mcg/actuation aerosol powdr breath activated 2 inh inhalation Q4-6H PRN (Reason: shortness of breath or wheezing) Qty: 1 0RF prednisone 20 mg tablet 40 mg PO DAILY 5 Days Qty: 10 0RF ketorolac 10 mg tablet 10 mg PO TID PRN (Reason: pain) 5 Days Qty: 15 0RF doxycycline hyclate 100 mg capsule 100 mg PO BID 10 Days Qty: 20 0RF No Action doxycycline hyclate 100 mg tablet 100 mg PO BID 7 Days Qty: 14 0RF clindamycin HCl 300 mg capsule 300 mg PO TID 10 Days Qty: 30 0RF oxycodone 5 mg tablet 5 mg PO Q6H PRN (Reason: pain) Qty: 14 0RF Rx Instructions: Partial Fill upon patient request. acetaminophen [Tylenol Extra Strength] 500 mg tablet 1,000 mg PO QID PRN (Reason: fever or pain) Qty: 14 0RF ibuprofen 800 mg tablet 800 mg PO Q8H PRN (Reason: pain) Qty: 14 0RF prednisone 20 mg tablet 60 mg PO DAILY 5 Days Qty: 15 0RF doxycycline hyclate 100 mg tablet 100 mg PO Q12H 7 Days Qty: 14 0RF Referrals: Physician,Unknown J [Physician] - 2 days Stand Alone Forms: Work/School Release
[2023-04-10] MEDS: dexAMETHasone sod phosphate 10 MG/ML VIAL IVPUSH (11:43)
[2023-04-10] MEDS: Ketorolac Tromethamine 15 MG/ML VIAL IM (11:43)
[2023-04-10 12:13] LABS: Influenza A PCR POSITIVE (Negative); Influenza B PCR NEGATIVE (Negative); Resp Syncy Virus RNA Qual PCR NEGATIVE (Negative); SARS COV2 PCR INHOUSE NEGATIVE (Negative)
[2023-04-10 12:35] VITALS: PULSE 64; RESP 18; O2SAT 96
[2023-04-10] MEDS: Albuterol Sulfate 90 MCG 8 GM INHALER 4 PUFF INHALE (12:37)
== END 2023-04-10 12:58 | disposition home or self-care (01) ==
PROVIDERS: Physician Assistant; Emergency Provider Emergency Medicine Emergency Medical Services; PCP Internal Medicine
DX: J11.1 Influenza due to unidentified influenza virus with other respiratory manifestations (principal); J18.9 Pneumonia, unspecified organism; Z20.822 Contact with and (suspected) exposure to COVID-19; Z20.828 Contact with and (suspected) exposure to other viral communicable diseases
CPT/HCPCS: 0241U; 71046; 93005; 94640; 96372; 99284; J1100; J1885

== ENCOUNTER → 2023-04-10 11:12 | Outpatient (BNV) | payer OTHER, SELFPAY | PROVIDERS: Emergency Provider Emergency Medicine Emergency Medical Services; PCP Internal Medicine; Visit Provider Internal Medicine | DX: R07.9 Chest pain, unspecified (principal); R06.02 Shortness of breath | CPT/HCPCS: 93010 ==

== ENCOUNTER 2023-04-24 18:16 | Emergency (ER) | payer OTHER, SELFPAY ==
--- NOTE | ~2023-04-24 | US_ITS ---
EXAMINATION: US ABDOMEN LIMITED CLINICAL INFORMATION: Right upper quadrant/epigastric pain. Nausea and vomiting. COMPARISON: Ultrasound abdomen 07/05/2009 TECHNIQUE: Real-time imaging of the right upper quadrant abdominal viscera. FINDINGS: PANCREAS: The pancreas is homogeneous in echotexture. The pancreatic duct is dilated measuring 0.4 cm. LIVER: Normal. The liver is normal in size. The liver contour is normal. Parenchymal echogenicity is normal. No focal hepatic lesion. There is no intrahepatic biliary duct dilatation seen. GALLBLADDER: There is echogenic mobile debris in a mildly distended gallbladder. No wall thickening seen. There is mild tenderness in the right upper quadrant. No pericholecystic fluid collection seen. COMMON BILE DUCT: Normal in caliber measuring 1.15 cm in diameter. RIGHT KIDNEY: Normal. No hydronephrosis. No renal calculi or focal parenchymal lesions. The kidney measures 13.3 cm in maximum dimension. FREE FLUID: None. US/US abdomen limited IMPRESSION: 1. Echogenic mobile debris in the gallbladder but no wall thickening. There is mild tenderness in the right upper quadrant. 2. Mild dilatation of pancreatic duct measuring 0.4 cm. 3. Rest of the abdominal ultrasound is unremarkable.
--- NOTE | 2023-04-24 18:17 | ECG_ITS ---
Test Reason : CHEST PAIN Blood Pressure : / mmHG Vent. Rate : 069 BPM Atrial Rate : 069 BPM P-R Int : 152 ms QRS Dur : 076 ms QT Int : 402 ms P-R-T Axes : 068 035 025 degrees QTc Int : 430 ms Normal sinus rhythm Possible Left atrial enlargement Low voltage QRS Septal infarct , age undetermined Abnormal ECG When compared with ECG of 10-APR-2023 11:16, No significant change was found Referred By: Taina Block Electronically Signed By:OVIDIO GALAN MD
[2023-04-24 18:47] VITALS: BP 119/50; PULSE 74; RESP 20; TEMP 36.8; O2SAT 100; BMI 42.2
--- NOTE | 2023-04-24 18:48 | ED_ITS ---
HPI - Chest Pain General Chief Complaint: Abdominal Pain Stated Complaint: Chest pain and vomiting all day Time Seen by Provider: 04/24/23 21:14 Source: patient Mode of arrival: ambulatory Limitations: no limitations History of Present Illness HPI narrative: Patient is status post gastric sleeve surgery and appendectomy noticed sudden onset of pain at 10:30 localizing right upper quadrant and epigastric area associated with nausea vomiting. Patient denies similar pain in the past had fried food in the nighttime was working went to sleep midnight and pain woke her up at 10:30 no diarrhea no fever no chills no history of gastritis or ulcers patient feels bloated patient vomited bilious at least 10-15 times patient denied any urinary complaints Related Data Previous Rx's Medication Instructions Recorded doxycycline hyclate 100 mg tablet 100 mg PO BID 7 days #14 tabs 11/29/21 acetaminophen 500 mg tablet 1,000 mg (2 x 500 mg) PO QID PRN 06/01/22 (Tylenol Extra Strength) fever or pain #14 tabs clindamycin HCl 300 mg capsule 300 mg PO TID dental infection 10 06/01/22 days #30 caps ibuprofen 800 mg tablet 800 mg PO Q8H PRN pain #14 tabs 06/01/22 oxycodone 5 mg tablet 5 mg PO Q6H PRN pain #14 tabs 06/01/22 doxycycline hyclate 100 mg tablet 100 mg PO Q12H 7 days #14 tabs 11/24/22 prednisone 20 mg tablet 60 mg (3 x 20 mg) PO DAILY 5 days 11/24/22 #15 tabs albuterol sulfate 90 mcg/actuation 2 puff inhalation Q4-6H PRN 04/10/23 aerosol inhaler (Ventolin HFA) shortness of breath or wheezing #8.5 grams albuterol sulfate 90 mcg/actuation 2 inh inhalation Q4-6H PRN 04/10/23 breath activated powder inhaler shortness of breath or wheezing #1 ea doxycycline hyclate 100 mg capsule 100 mg PO BID 10 days #20 caps 04/10/23 ketorolac 10 mg tablet 10 mg PO TID PRN pain 5 days #15 04/10/23 tabs prednisone 20 mg tablet 40 mg (2 x 20 mg) PO DAILY 5 days 04/10/23 #10 tabs ondansetron 4 mg disintegrating 4 mg PO Q6-8H PRN nausea and 01/11/24 tablet vomiting #10 tabs Allergies Allergy/AdvReac Type Severity Reaction Status Date / Time fentanyl [Fentanyl] Allergy Mild RASH Verified 11/24/22 11:39 Penicillins Allergy Mild RASH Verified 11/24/22 11:39 Review of Systems 2 Review of Systems: Yes all other systems are reviewed and are negative PMFSH Past Medical History Onset Date is defined in the Problem List Problems that require an onset date and time if occurred within 24 hrs of arrival to the ED Aortic Dissection and Rupture; Neurologic impairment; Cardiopulmonary Arrest; Endotracheal Intubation; Insertion or Replacement of Mechanical Circulatory Assist Device Medical History (Updated 04/25/23 @ 00:10 by Manas Charles MD) Hypothyroidism Surgical History (Updated 04/24/23 @ 22:02 by Manas Charles MD) History of appendectomy S/P gastric sleeve procedure Social History Social History Alcohol intake: never Advance Directives: No Advance Directives Information Provided: No Physical Exam 2 Vital Signs: Vital Signs: Last Vital Signs Temp 98.8 F 04/24/23 22:00 Pulse 73 04/24/23 22:00 Resp 16 04/24/23 22:00 BP 118/60 04/24/23 22:00 Pulse Ox 98 04/24/23 22:00 O2 Del Method Room Air 04/24/23 22:00 BMI result Body Mass Index 42.2 Appearance: Alert. Oriented X3. No acute distress. Eyes: No pallor or icterus ENT: Pharynx normal. Oral Mucosa moist Neck: Normal inspection. Neck supple. CVS: Normal heart rate and rhythm. Pulses normal. Respiratory: No respiratory distress. Equal air entry bilateral, no wheezing/rales/rhonchi Abdomen: Soft , tenderness in the epigastric and right upper quadrant no rebound tenderness or guarding. Bowel sounds are present, no mass palpable, no CVA tenderness Skin: Skin warm and dry. Normal skin color. Normal skin turgor. Neuro: Oriented X 3. Course Course Course Narrative: RME: 32 year-old w/ PMHx gastric sleeve (6yrs ago) & appendectomy presenting to the ED c/o lower chest pain radiating to epigastrum & RUQ x today 1030AM. +N/V, No diarrhea. Was at [facility] [employer] but LWTd abdomen soft w/RUQ/epigastric ttp Labs, UA, US Abd ordered Full HPI, ROS and PE to be performed by primary ED provider. Medications Administered Discontinued Medications Generic Name Dose Route Start Last Admin Trade Name Freq PRN Reason Stop Dose Admin Sodium Chloride 1,000 mls @ 999 mls/hr 04/24/23 21:31 04/24/23 23:47 Ns IV 04/24/23 22:31 Infused .Q1H1M ONE Infusion Ketorolac Tromethamine 30 mg 04/24/23 23:23 04/24/23 23:46 Ketorolac Tromethamine 30 Mg/Ml Vial IVPUSH 04/24/23 23:24 30 mg ONCE ONE Administration Morphine Sulfate 4 mg 04/24/23 21:31 04/24/23 21:53 Morphine Sulfate 4 Mg/Ml Cartridge IVPUSH 04/24/23 21:32 4 mg ONCE ONE Administration Protocol Ondansetron HCl 4 mg 04/24/23 21:31 04/24/23 21:53 Ondansetron Hcl 4 Mg/2 Ml Vial IVPUSH 04/24/23 21:32 4 mg ONCE ONE Administration Medical Decision Making Medical Decision Making MDM Narrative: Patient with upper abdominal pain ultrasound gallbladder showed debris in the gallbladder without cholecystitis findings pain improved after IV fluids and pain medication patient taking p.o. fluids patient to follow with surgery Differential Diagnosis Differential Diagnoses: The differential diagnosis associated with the presentation includes GB stone/cholecystitis/UTI Lab Data [facility] Lab Attestation statement: I reviewed the patient's lab results. 04/24/23 19:58 04/24/23 19:58 Labs: Lab Results 04/24/23 04/24/23 04/24/23 Range/Units 19:58 20:02 20:47 WBC 8.8 (4.8-10.8) X10*3/uL RBC 4.75 D (4.20-5.50) X10*6/uL Hgb 14.2 D (12.0-16.0) g/dl Hct 42.7 D (37.0-47.0) % MCV 89.9 (80.0-98.0) fL MCH 29.9 (27.0-33.0) pg MCHC 33.3 (31.0-35.0) g/dl RDW 11.8 (11.0-16.0) % Plt Count 325 D (160-400) X10*3/uL MPV 10.5 (9.4-12.3) fL Immature Gran % (Auto) 0.2 (0.0-0.4) % Neut % (Auto) 88.3 H (45-73) % Lymph % (Auto) 7.2 L (20-40) % [place] % (Auto) 4.0 (2-11) % Eos % (Auto) 0.2 (0-4) % Baso % (Auto) 0.1 (0-2) % Lymph # (Auto) 0.6 L (1.2-4.9) X10*3/uL [place] # (Auto) 0.4 (0.1-1.2) X10*3/uL Eos # (Auto) 0.0 (0.0-0.4) X10*3/uL Baso # (Auto) 0.0 (0.0-0.2) X10*3/uL Abs Immat Gran (auto) 0.02 (0.00-0.03) X10*3/uL Absolute Neuts (auto) 7.8 (2.0-8.3) x10*3/uL Absolute Nucleated RBC 0.000 (0.0-0.012) X10*3/uL Nucleated RBC % (auto) 0.0 (0.0-0.2) /100WBC PT 11.7 (11.1-13.3) SEC INR 1.0 (0.9-1.1) Sodium 141 (135-145) mmol/L Potassium 4.2 (3.3-5.1) mmol/L Chloride 110 H (96-108) mmol/L Carbon Dioxide 22 (22-29) mmol/L Anion Gap 13 (12-20) BUN 11 (9-16) mg/dL Creatinine 0.67 (0.5-1.4) mg/dL Estim Creat Clear Calc 161.8 Estimated GFR > 60 Random Glucose 96 (60-115) mg/dL Calcium 9.6 D (8.4-10.2) mg/dL Magnesium 1.9 (1.6-2.6) mg/dL Total Bilirubin 0.8 (0.0-1.0) mg/dL Direct Bilirubin 0.3 (0.0-0.5) mg/dL AST 16 (5-31) U/L ALT 14 (0-31) U/L Alkaline Phosphatase 60 (39-117) U/L Total Protein 7.5 (6.5-8.0) g/dL Albumin 3.9 (3.5-5.0) g/dL Lipase 15 (8-78) U/L Beta HCG, Quant < 2 mIU/mL Urine Color Dark Yellow Urine Appearance Clear Urine pH 5.5 (5.0-9.0) Ur Specific [place] >= 1.030 H (1.005-1.025) Urine Protein Negative (Neg-Trace) mg/dL Urine Glucose (UA) Negative (Negative) mg/dL Urine Ketones 15 (Negative) mg/dL Urine Blood Negative (Negative) Urine Nitrite Negative (Negative) Ur Leukocyte Esterase Trace H (Negative) Urine RBC 0-2 (0-2) /HPF Urine WBC 0-5 (0-5) /HPF Ur Squamous Epith Cells 3-5 (0-2) /HPF Urine Bacteria None Seen (None Seen) Hyaline Casts 0-2 (0-2) /LPF Independent Interpretation I performed an independent interpretation of an: Ultrasound Radiology Impression Discussion of test interpretation with radiology: I have reviewed the radiologist's reading. Radiologist Impression: US/US abdomen limited IMPRESSION: 1. Echogenic mobile debris in the gallbladder but no wall thickening. There is mild tenderness in the right upper quadrant. 2. Mild dilatation of pancreatic duct measuring 0.4 cm. 3. Rest of the abdominal ultrasound is unremarkable. Discharge Plan Discharge Clinical Impression: Biliary colic Patient Disposition: Home, Self-Care Instructions: Gallstones (ED) Additional Instructions: Drink plenty of fluid Avoid fried food Take pain medication as prescribed Report to the ER if worsening of the pain/vomiting Follow-up with surgeon Prescriptions: New ondansetron 4 mg tablet,disintegrating 4 mg PO Q6-8H PRN (Reason: nausea and vomiting) Qty: 10 0RF No Action doxycycline hyclate 100 mg tablet 100 mg PO BID 7 Days Qty: 14 0RF clindamycin HCl 300 mg capsule 300 mg PO TID 10 Days Qty: 30 0RF oxycodone 5 mg tablet 5 mg PO Q6H PRN (Reason: pain) Qty: 14 0RF Rx Instructions: Partial Fill upon patient request. acetaminophen [Tylenol Extra Strength] 500 mg tablet 1,000 mg PO QID PRN (Reason: fever or pain) Qty: 14 0RF ibuprofen 800 mg tablet 800 mg PO Q8H PRN (Reason: pain) Qty: 14 0RF albuterol sulfate 90 mcg/actuation aerosol powdr breath activated 2 inh inhalation Q4-6H PRN (Reason: shortness of breath or wheezing) Qty: 1 0RF prednisone 20 mg tablet 40 mg PO DAILY 5 Days Qty: 10 0RF ketorolac 10 mg tablet 10 mg PO TID PRN (Reason: pain) 5 Days Qty: 15 0RF doxycycline hyclate 100 mg capsule 100 mg PO BID 10 Days Qty: 20 0RF albuterol sulfate [Ventolin HFA] 90 mcg/actuation HFA aerosol inhaler 2 puff inhalation Q4-6H PRN (Reason: shortness of breath or wheezing) Qty: 8.5 0RF prednisone 20 mg tablet 60 mg PO DAILY 5 Days Qty: 15 0RF doxycycline hyclate 100 mg tablet 100 mg PO Q12H 7 Days Qty: 14 0RF Referrals: William Seals MD [Physician] - 2 weeks Stand Alone Forms: Work/School Release Interventions: ED Discharge Assessment Last Done: 04/25/23 00:27 Discharge Date/Time: 04/25/23 00:31
[2023-04-24 20:10] LABS: MANUAL DIFF FLAG NO
[2023-04-24 20:12] LABS: Basophils Percent Auto 0.1 % (0-2); Eosinophils Percent Auto 0.2 % (0-4); Hematocrit 42.7 % (37.0-47.0); Hemoglobin 14.2 g/dl (12.0-16.0); Imm Gran Abs Auto 0.02 X10*3/uL (0.00-0.03); Imm Gran Pct Auto 0.2 % (0.0-0.4); Lymphocytes Absolute Auto 0.6 X10*3/uL (1.2-4.9); Lymphocytes Percent Auto 7.2 % (20-40); Mean Corpuscular HGB Conc 33.3 g/dl (31.0-35.0); Mean Corpuscular Hemoglobin 29.9 pg (27.0-33.0); Mean Corpuscular Volume 89.9 fL (80.0-98.0); Mean Platelet Volume 10.5 fL (9.4-12.3); Monocytes Absolute Auto 0.4 X10*3/uL (0.1-1.2); Neutrophils Absolute Auto 7.8 x10*3/uL (2.0-8.3); Neutrophils Percent Auto 88.3 % (45-73); Platelet Count 325 X10*3/uL (160-400); Red Blood Count 4.75 X10*6/uL (4.20-5.50); Red Cell Distribution Width 11.8 % (11.0-16.0); White Blood Count 8.8 X10*3/uL (4.8-10.8)
[2023-04-24 20:13] LABS: Appearance Urine Clear; Color Urine Dark Yellow; Glucose Urine UA Negative (Negative); Leukocyte Esterase Urine Trace (Negative); Nitrite Urine Negative (Negative); PH 5.5 (5.0-9.0); Specific Gravity - Urine >= 1.030 (1.005-1.025); UMIC TRIGGER UACC YES; Urine Blood Negative (Negative); Urine Ketones 15 mg/dL (Negative); Urine Protein Negative (Neg-Trace)
[2023-04-24 20:34] LABS: Alanine Aminotransferase 14 U/L (0-31); Albumin Level 3.9 g/dL (3.5-5.0); Alkaline Phosphatase 60 U/L (39-117); Anion Gap 13 (12-20); Aspartate Amino Transferase 16 U/L (5-31); Bilirubin Direct 0.3 mg/dL (0.0-0.5); Bilirubin Total 0.8 mg/dL (0.0-1.0); Blood Urea Nitrogen 11 mg/dL (9-16); Calcium 9.6 mg/dL (8.4-10.2); Carbon Dioxide 22 mmol/L (22-29); Chloride 110 mmol/L (96-108); Creatinine Clr Calc Pharmacy 161.8; Estimated Glomerular Filt Rate > 60; Glucose Random 96 mg/dL (60-115); HCG Quantitative < 2 mIU/mL; Lipase 15 U/L (8-78); Magnesium 1.9 mg/dL (1.6-2.6); Potassium 4.2 mmol/L (3.3-5.1); Sodium 141 mmol/L (135-145); Total Protein 7.5 g/dL (6.5-8.0)
[2023-04-24 20:46] LABS: Bacteria Urine None Seen (None Seen); Hyaline Casts Urine 0-2 /LPF (0-2); RBC Urine 0-2 /HPF (0-2); WBC Urine 0-5 /HPF (0-5)
[2023-04-24 21:09] LABS: Prothrombin Time 11.7 SEC (11.1-13.3)
[2023-04-24] MEDS: Morphine Sulfate 4 MG/ML CARTRIDGE IVPUSH (21:53)
[2023-04-24] MEDS: 0.9 % Sodium Chloride 1,000 ML 999 ML IV (21:53)
[2023-04-24] MEDS: ondansetron HCL 4 MG/2 ML VIAL IVPUSH (21:53)
[2023-04-24 22:00] VITALS: BP 118/60; PULSE 73; RESP 16; TEMP 37.1; O2SAT 98
[2023-04-24] MEDS: Ketorolac Tromethamine 30 MG/ML VIAL IVPUSH (23:46)
== END 2023-04-25 00:31 | disposition home or self-care (01) ==
PROVIDERS: Physician Assistant; Emergency Provider Internal Medicine; PCP Internal Medicine
DX: K80.50 Calculus of bile duct without cholangitis or cholecystitis without obstruction (principal); Z87.891 Personal history of nicotine dependence
CPT/HCPCS: 36415; 76705; 80048; 80076; 81001; 83690; 83735; 84702; 85025; 85610; 93005; 96361; 96374; 96375; 99284; 99285; J1885; J2270; J2405

== ENCOUNTER → 2023-04-24 18:17 | Outpatient (BNV) | payer OTHER, SELFPAY | PROVIDERS: Emergency Provider Internal Medicine; PCP Internal Medicine; Visit Provider Internal Medicine Cardiovascular Disease | DX: R94.31 Abnormal electrocardiogram [ECG] [EKG] (principal) | CPT/HCPCS: 93010 ==

== ENCOUNTER 2023-05-07 13:24 | Inpatient (IN) | payer OTHER, SELFPAY ==
[2023-05-07] VITALS (10 sets, daily range): BP systolic 103–146; BP diastolic 54–93; PULSE 58–85; RESP 16–20; TEMP 36.2–37.4; O2SAT 96–100; BMI 37.6
--- NOTE | ~2023-05-07 | FL_ITS ---
EXAMINATION: XR FLUOROSCOPY WITH IMAGES CLINICAL INFORMATION: Cholangiogram COMPARISON: Same day right upper quadrant ultrasound TECHNIQUE: Fluoroscopy Supervised By: Dr. Jones. Fluoroscopy Time: 0.6. Cumulative Dose: 16.3 mGy. DAP: 4.46 Gycm2. Images: 4. FINDINGS: Intraoperative cholangiogram performed with cannulation of cystic duct and injection of contrast which is refluxing into the intrahepatic biliary tree and CBD. There are no filling defects and CBD. FL/FL guidance in OR IMPRESSION: 100 cystectomy with intraoperative cholangiogram revealing no obstruction
--- NOTE | ~2023-05-07 | US_ITS ---
EXAMINATION: US ABDOMEN LIMITED CLINICAL INFORMATION: Worsening right upper quadrant pain. COMPARISON: Previous abdominal ultrasound most recent 04/24/2023 TECHNIQUE: Real-time imaging of the right upper quadrant abdominal viscera. FINDINGS: PANCREAS: Head of the pancreas is normal-appearing. The body and tail are not well seen. There is a small amount of fluid seen surrounding the head of the pancreas. LIVER: Normal. The liver is normal in size. The liver contour is normal. Parenchymal echogenicity is normal. No focal hepatic lesion. There is mild intrahepatic biliary duct dilatation seen. GALLBLADDER: Upper normal-size gallbladder measuring 3.8 x 4.1 x 10 cm. Gallstones in the gallbladder neck, largest measuring 1.3 cm. Normal thickness gallbladder wall. No gallbladder wall edema. COMMON BILE DUCT: Slightly dilated common bile duct measuring 1 cm in diameter. RIGHT KIDNEY: Normal. No hydronephrosis. No renal calculi or focal parenchymal lesions. The kidney measures 11 cm in maximum dimension. FREE FLUID: None. US/US abdomen limited IMPRESSION: Upper normal-size gallbladder and gallstones in the gallbladder neck. Mild intra and extrahepatic biliary duct dilatation. Small amount of fluid seen surrounding the head of the pancreas. Body and tail of the pancreas are not well visualized.
--- NOTE | 2023-05-07 13:54 | ED_ITS ---
HPI - Abdominal Pain General Chief Complaint: Abdominal Pain Stated Complaint: ABD PAIN,NAUSEA/VOMITING,H/W [facility] SURGEON Time Seen by Provider: 05/07/23 13:40 Source: patient Mode of arrival: EMS Limitations: no limitations History of Present Illness HPI narrative: Patient comes to the emergency room complaining of nausea, vomiting, epigastric and right upper quadrant pain. Patient states that she was seen here on 04/24/2023. Since then, patient has had intermittent epigastric/right upper quadrant pain and vomiting. Patient states that she called her primary care physician, they scheduled a surgery consult for possible cholecystectomy. Patient has not seen her surgeon yet. However, today patient was ready to go to work, patient started having worsening abdominal pain and violent vomiting. No diarrhea, no fever chills, no URI or UTI symptoms. Related Data Previous Rx's Medication Instructions Recorded doxycycline hyclate 100 mg tablet 100 mg PO BID 7 days #14 tabs 11/29/21 acetaminophen 500 mg tablet 1,000 mg (2 x 500 mg) PO QID PRN 06/01/22 (Tylenol Extra Strength) fever or pain #14 tabs clindamycin HCl 300 mg capsule 300 mg PO TID dental infection 10 06/01/22 days #30 caps ibuprofen 800 mg tablet 800 mg PO Q8H PRN pain #14 tabs 06/01/22 oxycodone 5 mg tablet 5 mg PO Q6H PRN pain #14 tabs 06/01/22 doxycycline hyclate 100 mg tablet 100 mg PO Q12H 7 days #14 tabs 11/24/22 prednisone 20 mg tablet 60 mg (3 x 20 mg) PO DAILY 5 days 11/24/22 #15 tabs albuterol sulfate 90 mcg/actuation 2 puff inhalation Q4-6H PRN 04/10/23 aerosol inhaler (Ventolin HFA) shortness of breath or wheezing #8.5 grams albuterol sulfate 90 mcg/actuation 2 inh inhalation Q4-6H PRN 04/10/23 breath activated powder inhaler shortness of breath or wheezing #1 ea doxycycline hyclate 100 mg capsule 100 mg PO BID 10 days #20 caps 04/10/23 ketorolac 10 mg tablet 10 mg PO TID PRN pain 5 days #15 04/10/23 tabs prednisone 20 mg tablet 40 mg (2 x 20 mg) PO DAILY 5 days 04/10/23 #10 tabs ondansetron 4 mg disintegrating 4 mg PO Q6-8H PRN nausea and 04/25/23 tablet vomiting #10 tabs Allergies Allergy/AdvReac Type Severity Reaction Status Date / Time fentanyl [Fentanyl] Allergy Severe RASH Verified 05/07/23 13:38 Penicillins Allergy Mild RASH Verified 11/24/22 11:39 Review of Systems Review of Systems Constitutional : No Weight loss, No Fever, No Chills, No Night Sweats, No Fatigue, No Malaise ENT/Mouth : No Hearing loss, No Ear Pain, No Nasal Congestion, No Sinus Pain, No Hoarseness, No sore throat, No Rhinorrhea, No Swallowing Difficulty Eyes: No Eye Pain, No Swelling, No Redness, No Foreign Body, No Discharge, No Vision Changes Cardiovascular : No Chest Pain, No SOB, No Dyspnea on Exertion, No Orthopnea, No Edema, No Palpitations Respiratory : No Cough, No Sputum, No Wheezing, No Smoke Exposure, No Dyspnea Gastrointestinal : Complaining of nausea, vomiting, no diarrhea, complaining of epigastric and right upper quadrant pain radiating towards the back. Meals worsened and triggered the epigastric pain Genitourinary : no irregular bleeding, No Dysuria, No Urinary Frequency, No Hematuria, No Urinary Incontinence, No Urgency, No Flank Pain, No Urinary Flow Changes, No Hesitancy Musculoskeletal : No joint pain, No Myalgias, No Joint Swelling Skin : No Skin Lesions, No rash Neuro : No Weakness, No Numbness, No Paresthesias, No Loss of Consciousness, No Dizziness, No Headache Psych : No Anxiety/Panic, No Depression, No SI/HI/AH/VH, No Social Issues, Heme/Lymph: No Bruising, No Bleeding,No Lymphadenopathy Endocrine : No Polyuria, No Polydipsia, No Temperature Intolerance [facility] Past Medical History Medical History (Updated 05/07/23 @ 16:32 by Laverne Campoverde MD) Hypothyroidism Surgical History History of appendectomy S/P gastric sleeve procedure Social History Social History Alcohol intake: never Smoked in Last 30 Days: Yes Use of substances other than those prescribed or required for medical reasons: No Advance Directives: No Physical Exam ED Vital Signs: Vital Signs - 24 hr 05/07/23 13:39 05/07/23 13:44 Temperature 98.4 F 98.4 F Pulse Rate 58 58 Respiratory Rate 20 20 Blood Pressure 114/80 114/80 Pulse Oximetry 100 100 Oxygen Delivery Method Room Air Room Air BMI result Body Mass Index 37.6 Const Other: Appearance: Alert. Oriented X3. No acute distress. Eyes: Pupils equal, round and reactive to light. ENT: Pharynx normal. Neck: Normal inspection. Neck supple. No lymph nodes noted. No crepitus CVS: Normal heart rate and rhythm. Pulses normal. Normal S1 and S2 Respiratory: No respiratory distress. Breath sounds normal. No Wheezing. No rales Abdomen: Soft , pain to palpation epigastric and right upper quadrant. Positive Bliss sign Skin: Skin warm and dry. Normal skin color. Normal skin turgor. Extremities: No lower extremity edema. No Lacerations. No Rash Neuro: Oriented X 3. No motor deficit. No sensory deficit. Moving all extremities. No slurred speech. CN 2 through 12 grossly intact Psych: calm, cooperative, normal affect Course Course Course Narrative: -patient receiving IV fluids, already received Zofran by the paramedics. Patient receiving IV ketorolac and Compazine. -all of patient's labs and imaging pending. Medical Decision Making Medical Decision Making [facility] Narrative: -my interpretation of labs: Normal Hematology and chemistry -my interpretation of ultrasound: Cholelithiasis present -patient was given IV fluids, Zofran, ketorolac, patient is still having abdominal pain, patient will given a dose of morphine. -discussed the patient with Dr. Jones from surgery, patient being admitted. -discussed with the patient that she will be evaluated by the surgery team, it is possible that patient will have a cholecystectomy tomorrow Differential Diagnosis Differential Diagnoses: The differential diagnosis associated with the presentation includes (Pancreatitis, cholecystitis, biliary colic) Admission/Observation Consideration of admission/observation: Escalation of care including admission/observation considered Consult Healthcare Provider Management of the patient was discussed with: Housekeeper Supervisor Lab Data [facility] Lab Attestation statement: I reviewed the patient's lab results. 05/07/23 15:51 05/07/23 15:51 Labs: Lab Results 05/07/23 Range/Units 15:51 WBC 8.1 (4.8-10.8) X10*3/uL RBC 4.24 (4.20-5.50) X10*6/uL Hgb 12.6 (12.0-16.0) g/dl Hct 36.5 L (37.0-47.0) % MCV 86.1 (80.0-98.0) fL MCH 29.7 (27.0-33.0) pg MCHC 34.5 (31.0-35.0) g/dl RDW 11.8 (11.0-16.0) % Plt Count 245 (160-400) X10*3/uL MPV 11.1 (9.4-12.3) fL Immature Gran % (Auto) 0.4 (0.0-0.4) % Neut % (Auto) 83.3 H (45-73) % Lymph % (Auto) 10.9 L (20-40) % [place] % (Auto) 5.1 (2-11) % Eos % (Auto) 0.2 (0-4) % Baso % (Auto) 0.1 (0-2) % Lymph # (Auto) 0.9 L (1.2-4.9) X10*3/uL [place] # (Auto) 0.4 (0.1-1.2) X10*3/uL Eos # (Auto) 0.0 (0.0-0.4) X10*3/uL Baso # (Auto) 0.0 (0.0-0.2) X10*3/uL Abs Immat Gran (auto) 0.03 (0.00-0.03) X10*3/uL Absolute Neuts (auto) 6.7 (2.0-8.3) x10*3/uL Absolute Nucleated RBC 0.000 (0.0-0.012) X10*3/uL Nucleated RBC % (auto) 0.0 (0.0-0.2) /100WBC PT 13.1 (11.1-13.3) SEC INR 1.1 (0.9-1.1) Sodium 142 (135-145) mmol/L Potassium 4.0 (3.3-5.1) mmol/L Chloride 112 H (96-108) mmol/L Carbon Dioxide 24 (22-29) mmol/L Anion Gap 10 L (12-20) BUN 9 (9-16) mg/dL Creatinine 0.64 (0.5-1.4) mg/dL Estim Creat Clear Calc 158.9 Estimated GFR > 60 Random Glucose 84 (60-115) mg/dL Calcium 9.0 D (8.4-10.2) mg/dL Total Bilirubin 0.4 (0.0-1.0) mg/dL Direct Bilirubin 0.2 (0.0-0.5) mg/dL AST 14 (5-31) U/L ALT 11 (0-31) U/L Alkaline Phosphatase 50 (39-117) U/L Troponin I High Sens < 2.7 (<3.5-17.0) ng/L Total Protein 6.4 L (6.5-8.0) g/dL Albumin 3.4 L (3.5-5.0) g/dL Lipase 7 L (8-78) U/L Independent Interpretation I performed an independent interpretation of an: Ultrasound Radiology Impression Discussion of test interpretation with radiology: I have reviewed the radiologist's reading. Radiologist Impression: FINDINGS: PANCREAS: Head of the pancreas is normal-appearing. The body and tail are not well seen. There is a small amount of fluid seen surrounding the head of the pancreas. LIVER: Normal. The liver is normal in size. The liver contour is normal. Parenchymal echogenicity is normal. No focal hepatic lesion. There is mild intrahepatic biliary duct dilatation seen. GALLBLADDER: Upper normal-size gallbladder measuring 3.8 x 4.1 x 10 cm. Gallstones in the gallbladder neck, largest measuring 1.3 cm. Normal thickness gallbladder wall. No gallbladder wall edema. COMMON BILE DUCT: Slightly dilated common bile duct measuring 1 cm in diameter. RIGHT KIDNEY: Normal. No hydronephrosis. No renal calculi or focal parenchymal lesions. The kidney measures 11 cm in maximum dimension. FREE FLUID: None. US/US abdomen limited IMPRESSION: Upper normal-size gallbladder and gallstones in the gallbladder neck. Mild intra and extrahepatic biliary duct dilatation. Small amount of fluid seen surrounding the head of the pancreas. Body and tail of the pancreas are not well visualized. Medications Administered Discontinued Medications Generic Name Dose Route Start Last Admin Trade Name Freq PRN Reason Stop Dose Admin Sodium Chloride 1,000 mls @ 999 mls/hr 05/07/23 13:47 05/07/23 14:22 Ns IVCONT 05/07/23 14:47 999 mls/hr .Q1H1M ONE Administration Ketorolac Tromethamine 30 mg 05/07/23 13:59 05/07/23 14:22 Ketorolac Tromethamine 30 Mg/Ml Vial IVPUSH 05/07/23 14:00 30 mg ONCE ONE Administration Prochlorperazine Edisylate 10 mg 05/07/23 13:47 05/07/23 14:22 Prochlorperazine Edisylate 10 Mg/2 Ml Vial IVPUSH 05/07/23 13:48 10 mg ONCE ONE Administration Critical Care Time Critical Care Time Critical Care Time: Yes Total Critical Care Time: 60 Attestation: I have personally provided critical care time. Time includes review of lab data, radiology results, discussion with consultants, and monitoring for potential decompensation. Intervention performed as documented. Discharge Plan Discharge Clinical Impression: Acute cholecystitis Patient Disposition: Admitted As Inpatient Prescriptions: No Action doxycycline hyclate 100 mg tablet 100 mg PO BID 7 Days Qty: 14 0RF clindamycin HCl 300 mg capsule 300 mg PO TID 10 Days Qty: 30 0RF oxycodone 5 mg tablet 5 mg PO Q6H PRN (Reason: pain) Qty: 14 0RF Rx Instructions: Partial Fill upon patient request. acetaminophen [Tylenol Extra Strength] 500 mg tablet 1,000 mg PO QID PRN (Reason: fever or pain) Qty: 14 0RF ibuprofen 800 mg tablet 800 mg PO Q8H PRN (Reason: pain) Qty: 14 0RF albuterol sulfate 90 mcg/actuation aerosol powdr breath activated 2 inh inhalation Q4-6H PRN (Reason: shortness of breath or wheezing) Qty: 1 0RF prednisone 20 mg tablet 40 mg PO DAILY 5 Days Qty: 10 0RF ketorolac 10 mg tablet 10 mg PO TID PRN (Reason: pain) 5 Days Qty: 15 0RF doxycycline hyclate 100 mg capsule 100 mg PO BID 10 Days Qty: 20 0RF albuterol sulfate [Ventolin HFA] 90 mcg/actuation HFA aerosol inhaler 2 puff inhalation Q4-6H PRN (Reason: shortness of breath or wheezing) Qty: 8.5 0RF ondansetron 4 mg tablet,disintegrating 4 mg PO Q6-8H PRN (Reason: nausea and vomiting) Qty: 10 0RF prednisone 20 mg tablet 60 mg PO DAILY 5 Days Qty: 15 0RF doxycycline hyclate 100 mg tablet 100 mg PO Q12H 7 Days Qty: 14 0RF
[2023-05-07] MEDS: Prochlorperazine Edisylate 10 MG/2 ML VIAL IVPUSH (14:22)
[2023-05-07] MEDS: 0.9 % Sodium Chloride 1,000 ML 999 ML IVCONT (14:22)
[2023-05-07] MEDS: Ketorolac Tromethamine 30 MG/ML VIAL IVPUSH (14:22)
--- NOTE | 2023-05-07 14:30 | PC.NURSE ---
Pt alert and oriented. Skin noted to be slightly clammy. Breathing even and unlabored. Pt reports epigastric area ABD pain and nausea at this time. IV established, 20G in Left AC. Pt medicated per JUN. Pt taken to ultrasound at this time.
[2023-05-07 15:59] LABS: MANUAL DIFF FLAG NO
[2023-05-07 16:04] LABS: Basophils Percent Auto 0.1 % (0-2); Eosinophils Percent Auto 0.2 % (0-4); Hematocrit 36.5 % (37.0-47.0); Hemoglobin 12.6 g/dl (12.0-16.0); Imm Gran Abs Auto 0.03 X10*3/uL (0.00-0.03); Imm Gran Pct Auto 0.4 % (0.0-0.4); Lymphocytes Absolute Auto 0.9 X10*3/uL (1.2-4.9); Lymphocytes Percent Auto 10.9 % (20-40); Mean Corpuscular HGB Conc 34.5 g/dl (31.0-35.0); Mean Corpuscular Hemoglobin 29.7 pg (27.0-33.0); Mean Corpuscular Volume 86.1 fL (80.0-98.0); Mean Platelet Volume 11.1 fL (9.4-12.3); Monocytes Absolute Auto 0.4 X10*3/uL (0.1-1.2); Monocytes Percent Auto 5.1 % (2-11); Neutrophils Absolute Auto 6.7 x10*3/uL (2.0-8.3); Neutrophils Percent Auto 83.3 % (45-73); Platelet Count 245 X10*3/uL (160-400); Red Blood Count 4.24 X10*6/uL (4.20-5.50); Red Cell Distribution Width 11.8 % (11.0-16.0); White Blood Count 8.1 X10*3/uL (4.8-10.8)
[2023-05-07 16:06] LABS: INTERNATIONAL NORM RATIO 1.1 (0.9-1.1); Prothrombin Time 13.1 SEC (11.1-13.3)
[2023-05-07 16:15] LABS: Alanine Aminotransferase 11 U/L (0-31); Albumin Level 3.4 g/dL (3.5-5.0); Alkaline Phosphatase 50 U/L (39-117); Anion Gap 10 (12-20); Aspartate Amino Transferase 14 U/L (5-31); Bilirubin Direct 0.2 mg/dL (0.0-0.5); Bilirubin Total 0.4 mg/dL (0.0-1.0); Blood Urea Nitrogen 9 mg/dL (9-16); Carbon Dioxide 24 mmol/L (22-29); Chloride 112 mmol/L (96-108); Creatinine Clr Calc Pharmacy 158.9; Estimated Glomerular Filt Rate > 60; Glucose Random 84 mg/dL (60-115); Lipase 7 U/L (8-78); Sodium 142 mmol/L (135-145); Total Protein 6.4 g/dL (6.5-8.0)
[2023-05-07 16:23] LABS: Troponin-I High Sensitivity < 2.7 ng/L (<3.5-17.0)
[2023-05-07] MEDS: Morphine Sulfate 4 MG/ML CARTRIDGE IVPUSH (16:55)
[2023-05-07] MEDS: Piperacillin Sodium/Tazobactam 3.375 GM in 0.9 % Sodium Chloride 50 ML IV (16:55)
--- NOTE | 2023-05-07 17:26 | PHA.MEDREC ---
Pharmacy Consult ? Medication Reconciliation Pharmacy has completed the medication reconciliation. Confirmed medications with patient. Last had Sublocade 04/18/2023. Valerie Terry CPhT
--- NOTE | 2023-05-07 17:33 | HO.ANESPROP2 ---
[facility] Active Problems Active Problems: All Active Problems (Updated 05/07/23 @ 16:32 by Laverne Campoverde MD) Acute cholecystitis (Acute) Past Medical History Medical History Hypothyroidism Functional capacity: independent ambulation Patient : No Family History Family history of problems with anesthesia: No Surgical History Surgical History History of appendectomy S/P gastric sleeve procedure History of Problems with Anesthesia: No Social History Social History Alcohol intake: never Meds Allergies Allergy/AdvReac Type Severity Reaction Status Date / Time fentanyl [Fentanyl] Allergy Severe RASH Verified 05/07/23 13:38 Penicillins Allergy Mild RASH Verified 11/24/22 11:39 Home Medications Medication Instructions Recorded Confirmed Last Taken Type buprenorphine 300 mg/1.5 mL 300 mg subcut QMONTH 05/07/23 05/07/23 04/18/23 History solution,exten.rel.subcutaneous syringe (Sublocade) omeprazole 20 mg delayed 40 mg PO DAILY 05/07/23 05/07/23 05/07/23 History release,disintegrating tablet Exam Height,Weight and Vital Signs: Height 5 ft 7 in Weight 108.862 kg Last Vital Signs Temp 98.2 F 05/07/23 16:56 Pulse 63 05/07/23 16:56 Resp 16 05/07/23 16:56 BP 103/54 L 05/07/23 16:56 Pulse Ox 96 05/07/23 16:56 O2 Del Method Room Air 05/07/23 16:56 Pertinent Lab Results Pertinent Lab Results: Laboratory Tests 05/07/23 15:51 WBC 8.1 RBC 4.24 Hgb 12.6 Hct 36.5 L MCV 86.1 MCH 29.7 MCHC 34.5 RDW 11.8 Plt Count 245 MPV 11.1 Immature Gran % (Auto) 0.4 Neut % (Auto) 83.3 H Lymph % (Auto) 10.9 L [place] % (Auto) 5.1 Eos % (Auto) 0.2 Baso % (Auto) 0.1 Lymph # (Auto) 0.9 L [place] # (Auto) 0.4 Eos # (Auto) 0.0 Baso # (Auto) 0.0 Abs Immat Gran (auto) 0.03 Absolute Neuts (auto) 6.7 Absolute Nucleated RBC 0.000 Nucleated RBC % (auto) 0.0 PT 13.1 INR 1.1 Sodium 142 Potassium 4.0 Chloride 112 H Carbon Dioxide 24 Anion Gap 10 L BUN 9 Creatinine 0.64 Estim Creat Clear Calc 158.9 Estimated GFR > 60 Random Glucose 84 Calcium 9.0 D Total Bilirubin 0.4 Direct Bilirubin 0.2 AST 14 ALT 11 Alkaline Phosphatase 50 Troponin I High Sens < 2.7 Total Protein 6.4 L Albumin 3.4 L Lipase 7 L Airway Mallampati Class: II TM Dist: >3cm Neck ROM: Full Heart: RRR Lungs: CTA Assessment and Plan Assessment Anesthesia Assessment: Anesthesia Plan Discussed Final Anesthetic Review Family History of Problems with Anesthesia: No History of Problems with Anesthesia: No ASA Class: II and Emergency Final Preanesthetic Review: Meds/Allgs Chart Reviewed, Consent Obtained/Reviewed and Anes Risks/Benef Reviewed Patient Risk: Low Procedure Risk: Low Anesthetic Plan Anesthetic Plan: GA Disposition: Standard PACU
--- NOTE | 2023-05-07 17:42 | PC.NURSE ---
RN to RN report given to PACU, PACU room 14 ready. Transporter notified.
--- NOTE | 2023-05-07 18:03 | PM.HPGS ---
History of Present Illness History of Present Illness Date of Service: 05/07/23 Chief complaint: ABD PAIN,NAUSEA/VOMITING,H/W [facility] SURGEON Narrative: Patria Bray is a 32 year old female who has a past history of gastric sleeve surgery here [address] Shteh and who lost 240 lb in the process. Recently she has been having biliary colic attacks and had a significant attack about a week and a half 2 weeks ago which required her to come to the emergency room and she improved with IV hydration and pain medication. She has an outpatient surgical office visit to schedule cholecystectomy but last night had another attack which has not improved over the course of today. As a result she came back in today. She has been having right upper quadrant pain and extensive nausea and vomiting. This has been pattern and with eating but this last visit it has not. On her last visit her LFTs were all within normal limits as well as her white count other her common bile duct was little dilated at 1 0.1 cm. She comes back in today with ultrasound showing gallstones no significant findings consistent with cholecystitis but with the common bile duct enlarged 1 cm. Once again all her labs are within normal limits. Review of Systems Review of Systems: Yes all other systems are reviewed and are negative PMFSH Past Medical History Medical History Hypothyroidism Surgical History Surgical History History of appendectomy S/P gastric sleeve procedure Social History Social History Alcohol intake: never Smoked in Last 30 Days: Yes Use of substances other than those prescribed or required for medical reasons: No Advance Directives: No Patient : No Meds Allergies Allergy/AdvReac Type Severity Reaction Status Date / Time fentanyl [Fentanyl] Allergy Severe RASH Verified 05/07/23 13:38 Penicillins Allergy Mild RASH Verified 11/24/22 11:39 Home Medications Medication Instructions Recorded Confirmed Last Taken Type buprenorphine 300 mg/1.5 mL 300 mg subcut QMONTH 05/07/23 05/07/23 04/18/23 History solution,exten.rel.subcutaneous syringe (Sublocade) omeprazole 20 mg delayed 40 mg PO DAILY 05/07/23 05/07/23 05/07/23 History release,disintegrating tablet Physical Exam Vital Signs: Vital Signs: Last Vital Signs Temp 98.2 F 05/07/23 16:56 Pulse 63 05/07/23 16:56 Resp 16 05/07/23 16:56 BP 103/54 L 05/07/23 16:56 Pulse Ox 96 05/07/23 16:56 O2 Del Method Room Air 05/07/23 16:56 BMI result Body Mass Index 37.6 Const: General: cooperative, healthy appearing, comfortable and no acute distress Nutritional Appearance: overweight Orientation/consciousness: oriented to person, oriented to place and oriented to time HEENT: Head: Yes normal to inspection Eyes: Other: Nonicteric Resp: Effort & Inspection: normal respiratory effort and able to speak in complete sentences Auscultation: clear to auscultation bilaterally Cardio: Rate: regular rate Rhythm: regular rhythm Heart sounds: S1 normal heart sound present and S2 normal heart sound present GI: Other: Abdomen is soft nondistended active bowel sounds she is definitely tender in the right upper quadrant with guarding no peritoneal signs no rebound no peritonitis Skin: Other: Nonicteric Neuro: General: oriented to person, oriented to place and oriented to time Results Results Labs: Short CBC 05/07/23 Range/Units 15:51 WBC 8.1 (4.8-10.8) X10*3/uL Hgb 12.6 (12.0-16.0) g/dl Hct 36.5 L (37.0-47.0) % Plt Count 245 (160-400) X10*3/uL BMP 05/07/23 15:51 Sodium 142 Potassium 4.0 Chloride 112 H Carbon Dioxide 24 BUN 9 Creatinine 0.64 Calcium 9.0 D Liver Function 05/07/23 Range/Units 15:51 Total Bilirubin 0.4 (0.0-1.0) mg/dL Direct Bilirubin 0.2 (0.0-0.5) mg/dL AST 14 (5-31) U/L ALT 11 (0-31) U/L Alkaline Phosphatase 50 (39-117) U/L Albumin 3.4 L (3.5-5.0) g/dL Abdominal ultrasound report/results: report reviewed Assessment and Plan (1) Biliary colic: Status: Inactive Plan 32-year-old female with biliary colic. LFTs are within normal limits however her common bile duct is slightly on the larger side. She has had gastric sleeve resection in the past no other biliary procedure. She has had 2 significant events where she is come to the ER all those the LFTs as well as white count is normal. I think this is more biliary colic due to cholelithiasis which may have progressed since after her weight loss from her weight reduction surgery. At this point I think it is fair to carry laparoscopic cholecystectomy and will try to do an intraoperative cholangiogram. If this shows a common bile duct stone orifice unable to be carried out then we can talk about doing some postprocedure imaging which could necessitate an ERCP common bile duct stone is seen. Patient understands the plan risks and benefits were discussed with the patient including but not limited to bleeding infection possible open procedure possible bile duct injury possible bile duct leak possible bowel or other organ injury and despite this she wishes to proceed. 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 Quality Stroke Does the patient have a stroke diagnosis?: No VTE Prior VTE?: No VTE Risk Level:: Surgical - low VTE Device Contraindication: N/A - Device Ordered VTE Drug Contraindication: Treatment Not Indicated Procedures Date of Service Date of Service: 05/07/23
--- NOTE | 2023-05-07 19:43 | HO.ANESPROP2 ---
[facility] Active Problems Active Problems: All Active Problems Acute cholecystitis (Acute) Past Medical History Medical History Hypothyroidism Functional capacity: independent ambulation Family History Family history of problems with anesthesia: No Surgical History Surgical History History of appendectomy S/P gastric sleeve procedure History of Problems with Anesthesia: No Social History Social History Alcohol intake: never Meds Allergies Allergy/AdvReac Type Severity Reaction Status Date / Time fentanyl [Fentanyl] Allergy Severe RASH Verified 05/07/23 13:38 Penicillins Allergy Mild RASH Verified 11/24/22 11:39 Home Medications Medication Instructions Recorded Confirmed Last Taken Type buprenorphine 300 mg/1.5 mL 300 mg subcut QMONTH 05/07/23 05/07/23 04/18/23 History solution,exten.rel.subcutaneous syringe (Sublocade) omeprazole 20 mg delayed 40 mg PO DAILY 05/07/23 05/07/23 05/07/23 History release,disintegrating tablet Exam Height,Weight and Vital Signs: Height 5 ft 7 in Weight 108.862 kg Last Vital Signs Temp 97.2 F 05/07/23 18:50 Pulse 75 05/07/23 18:50 Resp 18 05/07/23 18:50 BP 114/75 05/07/23 18:50 Pulse Ox 97 05/07/23 18:50 O2 Del Method Room Air 05/07/23 18:50 Pertinent Lab Results Pertinent Lab Results: Laboratory Tests 05/07/23 15:51 WBC 8.1 RBC 4.24 Hgb 12.6 Hct 36.5 L MCV 86.1 MCH 29.7 MCHC 34.5 RDW 11.8 Plt Count 245 MPV 11.1 Immature Gran % (Auto) 0.4 Neut % (Auto) 83.3 H Lymph % (Auto) 10.9 L [place] % (Auto) 5.1 Eos % (Auto) 0.2 Baso % (Auto) 0.1 Lymph # (Auto) 0.9 L [place] # (Auto) 0.4 Eos # (Auto) 0.0 Baso # (Auto) 0.0 Abs Immat Gran (auto) 0.03 Absolute Neuts (auto) 6.7 Absolute Nucleated RBC 0.000 Nucleated RBC % (auto) 0.0 PT 13.1 INR 1.1 Sodium 142 Potassium 4.0 Chloride 112 H Carbon Dioxide 24 Anion Gap 10 L BUN 9 Creatinine 0.64 Estim Creat Clear Calc 158.9 Estimated GFR > 60 Random Glucose 84 Calcium 9.0 D Total Bilirubin 0.4 Direct Bilirubin 0.2 AST 14 ALT 11 Alkaline Phosphatase 50 Troponin I High Sens < 2.7 Total Protein 6.4 L Albumin 3.4 L Lipase 7 L Airway Heart: RRR Lungs: CTA Assessment and Plan Assessment Anesthesia Assessment: Anesthesia Plan Discussed Final Anesthetic Review Family History of Problems with Anesthesia: No History of Problems with Anesthesia: No NPO: Yes ASA Class: II and Emergency Final Preanesthetic Review: Meds/Allgs Chart Reviewed, Consent Obtained/Reviewed and Anes Risks/Benef Reviewed Patient Risk: Low Procedure Risk: Low Anesthetic Plan Anesthetic Plan: GA Disposition: Standard PACU
--- NOTE | 2023-05-07 20:52 | P.CONAN_ITS ---
[facility] Active Problems Active Problems: All Active Problems (Updated 05/07/23 @ 16:32 by Laverne Campoverde MD) Acute cholecystitis (Acute) Past Medical History Medical History Hypothyroidism Functional capacity: independent ambulation Family History Family history of problems with anesthesia: No Surgical History Surgical History History of appendectomy S/P gastric sleeve procedure History of Problems with Anesthesia: No Social History Social History Alcohol intake: never Meds Allergies Allergy/AdvReac Type Severity Reaction Status Date / Time fentanyl [Fentanyl] Allergy Severe RASH Verified 05/07/23 13:38 Penicillins Allergy Mild RASH Verified 11/24/22 11:39 Home Medications Medication Instructions Recorded Confirmed Last Taken Type buprenorphine 300 mg/1.5 mL 300 mg subcut QMONTH 05/07/23 05/07/23 04/18/23 History solution,exten.rel.subcutaneous syringe (Sublocade) omeprazole 20 mg delayed 40 mg PO DAILY 05/07/23 05/07/23 05/07/23 History release,disintegrating tablet Exam Height,Weight and Vital Signs: Height 5 ft 7 in Weight 108.862 kg Last Vital Signs Temp 97.2 F 05/07/23 18:50 Pulse 75 05/07/23 18:50 Resp 18 05/07/23 18:50 BP 114/75 05/07/23 18:50 Pulse Ox 97 05/07/23 18:50 O2 Del Method Room Air 05/07/23 18:50 Pertinent Lab Results Pertinent Lab Results: Laboratory Tests 05/07/23 15:51 WBC 8.1 RBC 4.24 Hgb 12.6 Hct 36.5 L MCV 86.1 MCH 29.7 MCHC 34.5 RDW 11.8 Plt Count 245 MPV 11.1 Immature Gran % (Auto) 0.4 Neut % (Auto) 83.3 H Lymph % (Auto) 10.9 L [place] % (Auto) 5.1 Eos % (Auto) 0.2 Baso % (Auto) 0.1 Lymph # (Auto) 0.9 L [place] # (Auto) 0.4 Eos # (Auto) 0.0 Baso # (Auto) 0.0 Abs Immat Gran (auto) 0.03 Absolute Neuts (auto) 6.7 Absolute Nucleated RBC 0.000 Nucleated RBC % (auto) 0.0 PT 13.1 INR 1.1 Sodium 142 Potassium 4.0 Chloride 112 H Carbon Dioxide 24 Anion Gap 10 L BUN 9 Creatinine 0.64 Estim Creat Clear Calc 158.9 Estimated GFR > 60 Random Glucose 84 Calcium 9.0 D Total Bilirubin 0.4 Direct Bilirubin 0.2 AST 14 ALT 11 Alkaline Phosphatase 50 Troponin I High Sens < 2.7 Total Protein 6.4 L Albumin 3.4 L Lipase 7 L Assessment and Plan Assessment Anesthesia Assessment: Anesthesia Plan Discussed Final Anesthetic Review Family History of Problems with Anesthesia: No History of Problems with Anesthesia: No ASA Class: II and Emergency Final Preanesthetic Review: Meds/Allgs Chart Reviewed, Consent Obtained/Reviewed and Anes Risks/Benef Reviewed Patient Risk: Low Procedure Risk: Intermediate Anesthetic Plan Anesthetic Plan: GA Disposition: Standard PACU
--- NOTE | 2023-05-07 21:26 | P.OP_ITS ---
Operative Note Operative Note Date of Service: 05/07/23 Narrative: Preop diagnosis-- biliary colic Postop diagnosis-- biliary colic cholelithiasis and cholecystitis Procedure done-- laparoscopic cholecystectomy with cholangiogram Surgeon- [facility] Anesthesia-- general endotracheal The patient is a 32-year-old female who has had gastric sleeve surgery and has lost significant weight and has had issues with gallbladder attacks biliary colic with known stones. One such attack about 2 weeks ago brought her to the emergency room and workup here revealed normal LFTs and she did well in the ER so the plan was selectively remove her gallbladder but she came in today with another attack before seeing a surgeon as an outpatient. Interestingly her common bile duct is always looked dilated by ultrasound but her LFTs have been completely normal. Plan was to do a cholangiogram here intraoperatively. Findings-- adhesions to the gallbladder from her previous gastric surgery and cholangiogram did not reveal any filling defects in the bile duct Procedure-- patient was brought to the operative room under Anesthesia guidance was intubated she had compression stockings placed from before induction. Please see anesthesia records for details her abdomen was prepped and draped in standard surgical fashion. An infraumbilical incision was created after numbing up the area with a 0.25% Marcaine with epinephrine. Dissection was carried down to the anterior abdominal wall fascia which was grasped with Francesco and transected with the scalpel 0 Vicryl pursestring suture was then placed. Moore trocar introduced pneumoperitoneum established to 15 mmHg pressure. Patient was then positioned head up left side down. Three 5 mm ports were then placed under direct visualization 1 in the epigastric area and 2 in the right upper quadrant area. Patient had a implantable subcutaneous reservoir maybe from a previous band which was avoided in the operation. The gallbladder was identified there was some adhesions to this area and this was taken down bluntly. This now allowed the gallbladder to be retracted superiorly and laterally. The gallbladder was then dissected and the cystic duct and cystic artery were dissected out such that they were the only structures going into the gallbladder. Now a small cut was made in the cystic duct and catheter wired here and the cholangiogram carried out which revealed normal hepatic radicles and the cystic going into common bile duct anatomy which was relatively normal. The common bile duct looks a little large but there was no filling defects and there was contrast that easily went into the bowel. The cholangiogram material was then removed and then the rest of the case carried out. Cystic duct was clipped 2 times down and 1 up and transected and the cystic artery which had 2 branches was clipped lower down and then transected. The cautery was used to take the gallbladder off the liver bed but near the dome of it it was very intrahepatic and there was some bleeding from the liver parenchyma which required some cauterization and some Surgicel eventually being placed. The gallbladder was removed from the infraumbilical port site in the pneumoperitoneum reestablished and eventually with the cauterization and the Gerry gicel hemostasis was good. There was a little bit of a bleeder from some of the fat omentum that had been part of the adhesions and this little bit of tissue was clipped twice. The entire area was irrigated as with the cholangiogram we had some spillage of bile. Once hemostasis look good and there was no more bile tinged fluid ports were removed and the infraumbilical port area closed with the pursestring suture. The Surgicel had been removed. Little more local was used and then the skin edges were closed with interrupted subcuticular suture. At the end of the case all sponge instrument needle counts were correct estimated blood loss was about 50 cc specimens sent was the gallbladder. Patient was extubated and returned stable to recovery room
[2023-05-07] MEDS: Acetaminophen 1,000 MG/100 ML PIGGYBACK 400 MG IV (21:38)
[2023-05-07] MEDS: 0.9 % Sodium Chloride 1,000 ML 100 ML IVCONT (22:19)
[2023-05-08] VITALS: RESP 16
[2023-05-08] MEDS: Morphine Sulfate 4 MG/ML CARTRIDGE IVPUSH ×2 (02:25→06:24)
[2023-05-08 03:33] VITALS: BP 115/59; PULSE 67; RESP 16; TEMP 36; O2SAT 95
[2023-05-08] MEDS: Omeprazole 40 MG CAPSULE.DR PO (06:23)
[2023-05-08 06:50] VITALS: RESP 18
[2023-05-08 07:26] VITALS: BP 107/58; PULSE 69; RESP 18; TEMP 36.2; O2SAT 95
[2023-05-08 07:39] VITALS: BP 107/58; PULSE 70; RESP 18; TEMP 36.2; O2SAT 95
--- NOTE | 2023-05-08 07:43 | P.PNGS_ITS ---
Subjective Subjective Date of Service: 05/09/23 Interval history: C/o pain at incisions. Has only had crackers. OOB to bathroom. Physical Exam 2 Vital Signs: Vital Signs: Last Vital Signs Temp 97.1 F 05/08/23 07:39 Pulse 70 05/08/23 07:39 Resp 18 05/08/23 07:39 BP 107/58 L 05/08/23 07:39 Pulse Ox 95 05/08/23 07:39 O2 Del Method Room Air 05/08/23 07:39 BMI result Body Mass Index 37.6 Const: General: comfortable, no acute distress and alert Resp: Effort & Inspection: normal respiratory effort GI: Inspection: No distended and Yes incision (dressings c/d/i) Palpation (GI): Soft to palpation and Tenderness to palpation present (GI) (mild incisional) Skin: General skin exam: no rashes or lesions noted and no jaundice Objective Data Active Medications Acetaminophen (Acetaminophen 325 Mg Tablet) 650 mg PO Q6H PRN PRN Reason: Pain, Mild (Pain Scale 1-3) Albuterol Sulfate (Albuterol Sulfate 90 Mcg 8 Gm Inhaler) 2 puff INHALE RQ4H PRN PRN Reason: Wheezing Hydromorphone HCl (Hydromorphone Hcl 0.5 Mg/0.5 Ml Syringe) 0.25 mg IVPUSH Q5M PRN; Protocol PRN Reason: Pain, Severe (Pain Scale 7-10) Sodium Chloride (Ns) 1,000 mls @ 100 mls/hr IVCONT .Q10H [facility] Last Admin: 05/07/23 22:19 Dose: 100 mls/hr Documented By: DALTON Ibuprofen (Ibuprofen 800 Mg Tablet) 800 mg PO Q8H PRN PRN Reason: Pain, Moderate(Pain Scale 4-6) Morphine Sulfate (Morphine Sulfate 4 Mg/Ml Cartridge) 4 mg IVPUSH Q4H PRN; Protocol PRN Reason: Pain, Severe (Pain Scale 7-10) Last Admin: 05/08/23 06:24 Dose: 4 mg Documented By: DALTON Omeprazole (Omeprazole 40 Mg Capsule.Dr) 40 mg PO DAILY@0630 [facility] Last Admin: 05/08/23 06:23 Dose: 40 mg Documented By: DALTON Ondansetron HCl (Ondansetron Hcl 4 Mg/2 Ml Vial) 4 mg IVPUSH ONCE PRN PRN Reason: Nausea and Vomiting Ondansetron HCl (Ondansetron Hcl 4 Mg/2 Ml Vial) 4 mg IVPUSH Q6H PRN PRN Reason: Nausea and Vomiting Sodium Chloride (0.9 % Sodium Chloride Flush 3 Ml Syringe) 3 ml IVFLUSH QSHIFT KEV Last Admin: 05/07/23 23:40 Dose: Not Given Documented By: DALTON Non-Admin Reason: IV Running Labs 05/07/23 15:51 05/07/23 15:51 Labs: Laboratory Results - last 24 hr 05/07/23 15:51 MCV 86.1 MCH 29.7 MCHC 34.5 RDW 11.8 Plt Count 245 MPV 11.1 Immature Gran % (Auto) 0.4 Neut % (Auto) 83.3 H Lymph % (Auto) 10.9 L [place] % (Auto) 5.1 Eos % (Auto) 0.2 Baso % (Auto) 0.1 Lymph # (Auto) 0.9 L [place] # (Auto) 0.4 Eos # (Auto) 0.0 Baso # (Auto) 0.0 Abs Immat Gran (auto) 0.03 Absolute Neuts (auto) 6.7 Absolute Nucleated RBC 0.000 Nucleated RBC % (auto) 0.0 PT 13.1 INR 1.1 Anion Gap 10 L Estim Creat Clear Calc 158.9 Estimated GFR > 60 Random Glucose 84 Calcium 9.0 D Total Bilirubin 0.4 Direct Bilirubin 0.2 AST 14 ALT 11 Alkaline Phosphatase 50 Total Protein 6.4 L Albumin 3.4 L Lipase 7 L Procedures Date of Service Date of Service: 05/09/23 Progress Note: A&P Assessment and plan (1) Acute cholecystitis: Status: Acute Plan POD #1 s/p lap buster with IOC. Doing well post op. VSS. Abd exam benign with appropriate tenderness, dressings c/d/i. Pain control may be difficult in view of sublocade. Tylenol/ibuprofen ATC and oxycodone as needed. Will reassess for possible dc to home later today if tolerating diet, pain controlled. Time Spent With Patient Time: Total time managing care of this patient today ____ minutes. Quality Stroke Does the patient have a stroke diagnosis?: No VTE Prior VTE?: No VTE Risk Level:: Surgical - low VTE Device Contraindication: N/A - Device Ordered VTE Drug Contraindication: Treatment Not Indicated
[2023-05-08] MEDS: Acetaminophen 325 MG TABLET 650 MG PO (08:45)
[2023-05-08] MEDS: Ibuprofen 800 MG TABLET PO (08:46)
--- NOTE | 2023-05-08 08:47 | PM.PNGS ---
Subjective Subjective Date of Service: 05/08/23 Interval history: Patient reports mainly incisional pain but otherwise feels improved. No nausea or vomiting Physical Exam Vital Signs: Vital Signs: Last Vital Signs Temp 97.1 F 05/08/23 07:39 Pulse 70 05/08/23 07:39 Resp 18 05/08/23 07:39 BP 107/58 L 05/08/23 07:39 Pulse Ox 95 05/08/23 07:39 O2 Del Method Room Air 05/08/23 07:39 BMI result Body Mass Index 37.6 Const: General: no acute distress Nutritional Appearance: well nourished Orientation/consciousness: patient oriented x3 Limitations: no limitations HEENT: Head: Yes normocephalic Eyes: Sclerae: sclerae normal GI: Other: trocar incisions are clean and intact Inspection: Yes normal to inspection Palpation (GI): Soft to palpation, nontender, no guarding and not rigid Neuro: General: patient oriented x3 Objective Data Active Medications Acetaminophen (Acetaminophen 325 Mg Tablet) 650 mg PO Q6H KEV Albuterol Sulfate (Albuterol Sulfate 90 Mcg 8 Gm Inhaler) 2 puff INHALE RQ4H PRN PRN Reason: Wheezing Ibuprofen (Ibuprofen 800 Mg Tablet) 800 mg PO Q8H KEV Morphine Sulfate (Morphine Sulfate 4 Mg/Ml Cartridge) 4 mg IVPUSH Q4H PRN; Protocol PRN Reason: Pain, Severe (Pain Scale 7-10) Last Admin: 05/08/23 06:24 Dose: 4 mg Documented By: DALTON Omeprazole (Omeprazole 40 Mg Capsule.Dr) 40 mg PO DAILY@0630 [facility] Last Admin: 05/08/23 06:23 Dose: 40 mg Documented By: DALTON Ondansetron HCl (Ondansetron Hcl 4 Mg/2 Ml Vial) 4 mg IVPUSH Q6H PRN PRN Reason: Nausea and Vomiting Oxycodone HCl (Oxycodone Hcl Immed Release 5 Mg Tablet) 5 mg PO Q4H PRN PRN Reason: Pain, Moderate(Pain Scale 4-6) Oxycodone HCl (Oxycodone Hcl Immed Release 5 Mg Tablet) 10 mg PO Q4H PRN PRN Reason: Pain, Severe (Pain Scale 7-10) Sodium Chloride (0.9 % Sodium Chloride Flush 3 Ml Syringe) 3 ml IVFLUSH QSHIFT [facility] Last Admin: 05/07/23 23:40 Dose: Not Given Documented By: DALTON Non-Admin Reason: IV Running Labs 05/07/23 15:51 05/07/23 15:51 Labs: Laboratory Results - last 24 hr 05/07/23 15:51 MCV 86.1 MCH 29.7 MCHC 34.5 RDW 11.8 Plt Count 245 MPV 11.1 Immature Gran % (Auto) 0.4 Neut % (Auto) 83.3 H Lymph % (Auto) 10.9 L Lares % (Auto) 5.1 Eos % (Auto) 0.2 Baso % (Auto) 0.1 Lymph # (Auto) 0.9 L Lares # (Auto) 0.4 Eos # (Auto) 0.0 Baso # (Auto) 0.0 Abs Immat Gran (auto) 0.03 Absolute Neuts (auto) 6.7 Absolute Nucleated RBC 0.000 Nucleated RBC % (auto) 0.0 PT 13.1 INR 1.1 Anion Gap 10 L Estim Creat Clear Calc 158.9 Estimated GFR > 60 Random Glucose 84 Calcium 9.0 D Total Bilirubin 0.4 Direct Bilirubin 0.2 AST 14 ALT 11 Alkaline Phosphatase 50 Total Protein 6.4 L Albumin 3.4 L Lipase 7 L Procedures Date of Service Date of Service: 05/08/23 Progress Note: A&P Assessment and plan (1) Acute cholecystitis: Status: Acute Plan POD #1 s/p lap cholecystectomy. Patient recovering well, tolerating some po without nausea or vomiting. Possible discharge to home later today if tolerating po better. Time Spent With Patient Time: Total time managing care of this patient today ____ minutes. Quality Stroke Does the patient have a stroke diagnosis?: No VTE Prior VTE?: No VTE Risk Level:: Surgical - low VTE Device Contraindication: N/A - Device Ordered VTE Drug Contraindication: Treatment Not Indicated
--- NOTE | 2023-05-08 09:19 | HO.POSTANES ---
Post Anesthesia Evaluation Post Anesthesia Evaluation Date of Service: 05/08/23 Vital Signs: Vital Signs Temp Pulse Resp BP Pulse Ox O2 Del Method 05/08/23 07:39 97.1 F 70 18 107/58 L 95 Room Air 05/08/23 07:26 97.1 F 69 18 107/58 L 95 Room Air 05/08/23 06:50 18 05/08/23 03:33 96.8 F 67 16 115/59 L 95 Room Air 05/08/23 00:00 16 05/07/23 22:24 97.3 F 64 18 137/80 97 Room Air 05/07/23 21:56 98.8 F 65 18 131/73 96 Room Air 05/07/23 21:41 67 16 127/71 96 Room Air 05/07/23 21:36 70 16 143/76 H 96 Room Air 05/07/23 21:31 76 16 141/76 H 99 Room Air 05/07/23 21:26 99.3 F 85 16 146/73 H 97 Room Air Anesthesia: General Endotracheal-GETA Mental Status: Awake Pain Control: Satisfactory Nausea/Vomiting: None Hydration: Adequate Anesthesia-Related Issues: No Anes. Related Issues
--- NOTE | 2023-05-08 10:24 | MHC.CM.PN ---
Female S/p Marquita She lives with her Fiance' and children. She is independent with all functional mobility. Shedeclined the offer to document a HCP. PCP is Dr Tommy Vidal [facility]. She is discharged to home today, self care. She has arranged for her S.O. to provide transport home.
[2023-05-08] MEDS: oxyCODONE HCl Immed Release 5 MG TABLET 10 MG PO (10:26)
[2023-05-08] MEDS: oxyCODONE HCl Immed Release 5 MG TABLET PO (13:49)
--- NOTE | 2023-05-09 08:44 | P.DS_ITS ---
DS: Providers Provider Date of Service: 05/08/23 Date of admission: 05/07/23 18:02 Date of discharge: 05/08/23 Primary care physician: Prudence Ford MD Attending physician on admission: Kiersten Jones Attending physician on discharge: Barry Maier DS: Diagnosis Discharge Diagnosis (1) Acute cholecystitis: Status: Acute DS: Summary Hospital Course Hospital Course: HPI AT ADMISSION: Patria Bray is a 32 year old female who has a past history of gastric sleeve surgery here [address] Sheth and who lost 240 lb in the process. Recently she has been having biliary colic attacks and had a significant attack about a week and a half 2 weeks ago which required her to come to the emergency room and she improved with IV hydration and pain medication. She has an outpatient surgical office visit to schedule cholecystectomy but last night had another attack which has not improved over the course of today. As a result she came back in today. She has been having right upper quadrant pain and extensive nausea and vomiting. This has been pattern and with eating but this last visit it has not. On her last visit her LFTs were all within normal limits as well as her white count other her common bile duct was little dilated at 1 0.1 cm. She comes back in today with ultrasound showing gallstones no significant findings consistent with cholecystitis but with the common bile duct enlarged 1 cm. Once again all her labs are within normal limits. HOSPITAL COURSE: She was admitted to the surgical service for further treatment of the acute cholecystitis. The patient had a laparoscopic cholecystectomy with IOC performed by Dr. Jones on 05/07/23. The procedure was completed without complications and was well tolerated by that patient. Patient is doing well POD1. The abdomen is non distended and the dressing sites were clean. Patient is tolerating PO well with good pain control. She was discharged on 05/08/23 in stable condition. Patient will continue oral analgesics and resume home medications. She is to follow up in 1 week in the office with Dr. Maier. Status at Discharge Functional status at discharge: independent ambulation Overall status at discharge: patient is progressing back to baseline Time Attestation Discharge coordination time: Less than 30 minutes Quality: Safe Use of Opioids Does Pt have an Active Cancer Diagnosis on the Problem List?: No Quality: Stroke Does the patient have a stroke diagnosis?: No Physical Exam Vital Signs: Vital Signs: Last Vital Signs Temp 97.1 F 05/08/23 07:39 Pulse 70 05/08/23 07:39 Resp 18 05/08/23 07:39 BP 107/58 L 05/08/23 07:39 Pulse Ox 95 05/08/23 07:39 O2 Del Method Room Air 05/08/23 07:39 BMI result Body Mass Index 37.6 Const: General: comfortable, no acute distress and well developed Orientat ion/consciousness: patient oriented x3 Resp: Effort & Inspection: normal respiratory effort GI: Inspection: No distended and Yes incision (dressings c/d/i) Palpation (GI): Soft to palpation and Tenderness to palpation present (GI) (mild incisional) Skin: General skin exam: no rashes or lesions noted and no jaundice Neuro: General: patient oriented x3 and moves all extremities DS: Data Data Completed and Pending Pending studies at discharge: Pending at discharge 05/07/23 20:32 Surgical [PTH] Routine Discharge Plan Discharge Anticipated Discharge Date/Time: 05/08/23 10:18 Patient Disposition: Home, Self-Care Discharge Diagnosis: s/p laparoscopic cholecystectomy Referrals: Barry Maier MD [Physician] - 1 Week Physician,Mami Louis [Physician] - 1 Week Discharge Medications: New docusate sodium [Colace] 100 mg capsule 100 mg PO BID PRN (Reason: constipation) Qty: 30 0RF oxycodone 5 mg tablet 5 mg PO Q4H PRN (Reason: pain (scale score 7-10)) Qty: 24 0RF Rx Instructions: Partial Fill upon patient request. Continued acetaminophen [Tylenol Extra Strength] 500 mg tablet 1,000 mg PO QID PRN (Reason: fever or pain) Qty: 14 0RF ibuprofen 800 mg tablet 800 mg PO Q8H PRN (Reason: pain) Qty: 14 0RF albuterol sulfate [Ventolin HFA] 90 mcg/actuation HFA aerosol inhaler 2 puff inhalation Q4-6H PRN (Reason: shortness of breath or wheezing) Qty: 8.5 0RF ondansetron 4 mg tablet,disintegrating 4 mg PO Q6-8H PRN (Reason: nausea and vomiting) Qty: 10 0RF omeprazole 20 mg tablet,disintegrat, delay rel 40 mg PO DAILY Sublocade 300 mg/1.5 mL solution, extended rel syringe 300 mg subcut QMONTH Discharge Orders: Discharge Order (Routine); Ordered 05/08/23 Ordered By: Dinorah Kaur Diet: Low fat, low cholesterol Activity on Discharge: No heavy lifting Stand Alone Forms: Patient Portal Discharge page, Work/School Release Activity Restrictions/Additional Instructions: If the incision area is tender, you may apply an ice pack for short intervals (No more than 20 minutes on, followed by at least 20 minutes off). Do not apply heat. Do not use creams, lotions, or topical antibiotics. These can cause infection or allergic reaction. Ok to shower. Remove clear dressings in 3 days. You have steri strips (small white cloth strips) covering your incision- these will fall off ~1 week. Follow up in office with Dr. Maier in 1 week. ([phone]) No heavy lifting (>10-20lbs) or strenuous activity! Call Your Doctor If: -Your temperature exceeds 101.5? F -You experience excessive pain or swelling -You have an unexpected reaction to medication -You have excessive bleeding -You experience continued vomiting/nausea -Your incision begins to separate -Your incision shows signs of infection such as increased redness, swelling, excessive pain, drainage (light blood or clear fluid is normal) or heat Care Plan Goals: Return to baseline health and resume normal activities following recovery period. Health Concerns: acute cholecystitis Plan of Treatment: s/p lap buster pain control f/u in office Assessment: doing well post op Discharge Date/Time: 05/08/23 14:15
== END 2023-05-08 14:15 | disposition home or self-care (01) | DRG 263 ==
LOC: HO.ED 16:39 → HO.EDOVER 18:07 → HO.S3 21:59
PROVIDERS: Admitting Provider Surgery; Emergency Provider Emergency Medicine; PCP Internal Medicine; Visit Provider Surgery
PROC: 0FT44ZZ Resection of Gallbladder, Percutaneous Endoscopic Approach (ICD-10-PCS; CPT 47562; principal; 2023-05-07 16:40)
DX: K80.62 Calculus of gallbladder and bile duct with acute cholecystitis without obstruction (principal); E03.9 Hypothyroidism, unspecified; K82.8 Other specified diseases of gallbladder; Z79.899 Other long term (current) drug therapy; Z98.84 Bariatric surgery status
CPT/HCPCS: 47563; 36415; 76705; 80048; 80076; 83690; 84484; 85025; 85610; 88304; 99024; 99285; C1726; J0131; J0690; J0737; J1100; J1170; J1596; J1885; J2250; J2270; J2405; J2543; J2550; J2704; J2795; J3010; Q9967

== ENCOUNTER → 2023-05-07 18:02 | Outpatient (BNV) | payer OTHER, SELFPAY | PROVIDERS: Admitting Provider Surgery; Emergency Provider Emergency Medicine; Visit Provider Surgery | DX: K81.0 Acute cholecystitis (principal) | CPT/HCPCS: 47563; 99024; 99222 ==

== ENCOUNTER 2023-05-16 15:11 | Outpatient (AMB) | payer OTHER, SELFPAY ==
--- NOTE | 2023-05-16 15:17 | MHC.OFFVIS ---
Intake Vital Signs 05/16/23 15:27 Height 5 ft 7 in Weight 263 lb BMI 41.2 BP 168/85 H Blood Pressure Location Lt brachial Position Sitting Pulse 67 Intake Visit Reasons: s/p lap buster w/ cholangiogram Intake Note: Patient is seen in office for post op assessment post laparoscopic cholecystectomy. Pt c/o: thinks belly button incision might be infected due to redness, foul odor, irritated, when having meals feels food gets stuck in throat and immediately has a stomach pain, denies diarrhea or constipation, nausea or vomit Op:05/07/23 Legal Word Processor Required: No Accompanied by: Self / Same As Patient Allergies fentanyl [Fentanyl] Allergy (Severe, Verified 05/16/23 15:26) RASH Penicillins Allergy (Mild, Verified 05/16/23 15:26) RASH HPI HPI Comments History of Present Illness Details 32-year-old female patient status post laparoscopic cholecystectomy and operative cholangiogram on 05/07/2023 for acute cholecystitis due to cholelithiasis. She tolerated the procedure well and was discharged to home on 05/08/2023. She returns today for wound check. [facility] Medical History Hypothyroidism Surgical History History of laparoscopic cholecystectomy (05/07/23) History of appendectomy S/P gastric sleeve procedure Social History Household Members: Family Housing: Apartment Do you presently have visiting nurse or other home services: No Unable to assess alcohol history related to: Unknown Alcohol intake: never Comment: COUNTS CORRECT Patient Tobacco Use Status: Former Tobacco user Tobacco use type: Cigarette Second Hand Smoke Exposure: No service: No Review of Systems Const All systems reviewed & are unremarkable except as noted in HPI and below Physical Exam GI Other: Trocar incisions are generally clean and intact. The umbilical incision however does have an area of redness consistent with a small fungal skin infection perhaps due to moisture. The incision is otherwise well healed. Assessment & Plan Assessment & Plan (1) Acute cholecystitis: Code(s): K81.0 - Acute cholecystitis Plan Status post laparoscopic cholecystectomy for acute cholecystitis due to cholelithiasis. I recommended applying nystatin cream twice daily to the umbilical skin for the next week. She should follow up as needed. Medications: New nystatin 1 appl topical BID 15 grams 0RF B36.9 - Superficial mycosis, unspecified Coding Level of Care Code Global (40630) Diagnoses Acute cholecystitis K81.0
[2023-05-16 15:27] VITALS: BP 168/85; PULSE 67; BMI 41.2
== END 2023-05-16 15:36 | disposition home or self-care (01) ==
PROVIDERS: PCP Internal Medicine; Visit Provider Surgery
DX: K81.0 Acute cholecystitis (principal)
CPT/HCPCS: 99024

== ENCOUNTER → 2023-05-16 15:11 | Outpatient (BNVA) | payer OTHER, SELFPAY | PROVIDERS: PCP Internal Medicine; Visit Provider Surgery | DX: Z09 Encounter for follow-up examination after completed treatment for conditions other than malignant neoplasm (principal); Z87.19 Personal history of other diseases of the digestive system; Z90.49 Acquired absence of other specified parts of digestive tract | CPT/HCPCS: 99212 ==

== ENCOUNTER 2024-05-12 04:47 | Emergency (ER) | payer OTHER, SELFPAY ==
--- NOTE | 2024-05-12 04:54 | ECG_ITS ---
Test Reason : NAUSEA/VOMIT Blood Pressure : */* mmHG Vent. Rate : 65 BPM Atrial Rate : 65 BPM P-R Int : 164 ms QRS Dur : 94 ms QT Int : 438 ms P-R-T Axes : 64 45 39 degrees QTcB Int : 455 ms Normal sinus rhythm Normal ECG When compared with ECG of 24-Apr-2023 18:25, No significant change was found Referred By: Generic ED Physician Electronically Signed By: ANDREW MARINO
[2024-05-12 04:55] VITALS: BP 146/76; PULSE 76; O2SAT 100; BMI 29.9
[2024-05-12 05:17] LABS: MANUAL DIFF FLAG NO
[2024-05-12 05:18] LABS: Basophils Percent Auto 0.2 % (0-2); Eosinophils Percent Auto 0.3 % (0-4); Hematocrit 38.4 % (37.0-47.0); Imm Gran Abs Auto 0.04 X10*3/uL (0.00-0.03); Imm Gran Pct Auto 0.3 % (0.0-0.4); Lymphocytes Absolute Auto 1.6 X10*3/uL (1.2-4.9); Lymphocytes Percent Auto 12.8 % (20-40); Mean Corpuscular HGB Conc 36.5 g/dl (31.0-35.0); Mean Corpuscular Hemoglobin 30.8 pg (27.0-33.0); Mean Corpuscular Volume 84.6 fL (80.0-98.0); Mean Platelet Volume 10.4 fL (9.4-12.3); Monocytes Absolute Auto 0.6 X10*3/uL (0.1-1.2); Neutrophils Absolute Auto 9.9 x10*3/uL (2.0-8.3); Neutrophils Percent Auto 81.4 % (45-73); Platelet Count 307 X10*3/uL (160-400); Red Blood Count 4.54 X10*6/uL (4.20-5.50); Red Cell Distribution Width 11.4 % (11.0-16.0); White Blood Count 12.2 X10*3/uL (4.8-10.8)
[2024-05-12] MEDS: Famotidine/PF 20 MG/2 ML VIAL IVPUSH (05:23)
[2024-05-12] MEDS: ondansetron HCL 4 MG/2 ML VIAL IVPUSH (05:23)
[2024-05-12 05:32] VITALS: BP 147/91; PULSE 66; RESP 16; TEMP 36.8; O2SAT 100
--- OUTSIDE RECORDS SUMMARY | 2024-05-12 05:35 | XMS_ITS | Clinical Summary ---
Author Organization [facility] it Address [address] [place] [address] Care Team Providers Care Combination Machine Tender Name Role Phone Ko Lopez MD Primary Care Provider [phone] Surgical History Surgery Date Site/Laterality Comments OTHER SURGICAL HISTORY 2000 PROCEDURE: SC TONSILLECTOMY & ADENOIDECTOMY AGE 11/> OTHER SURGICAL HISTORY 08/2012 PROCEDURE: HISTORICAL SUBTOTAL THYROIDECTOMY OTHER SURGICAL HISTORY 08/2015 PROCEDURE: ---- OTHER ----; COMMENT: gastric sleeve APPENDECTOMY PROCEDURE: HISTORICAL APPENDECTOMY Medical History Medical History Date Comments Hyperthyroidism DX:Hyperthyroidi sm; COMMENT: s/p left lobe resection History of weight loss surgery D X:History of weight loss surgery Family History Medical History Relation Name Comments Other: healthy Brother 1 X2 Coronary artery disease Father Diabetes Father Other: Vision problems Father Derrick s glaucoma, blindness Other: Testicular cancer Maternal Grandfather [place] Anemia Mother Depression Mother Hypertension Mother Other: morbid obesity Mother s/p we ight loss and gastric bypass w/ multiple revisions Lymphoma Uncle maternal uncle Relation Name Status Comments Brother 1 Brother 2 Alive Brother 3 Alive Father Maternal Grandfather Mother Alive Uncle Social History Tobacco Use Types Packs/Day Years Used Date Smoking Tobacco: Former Cigarettes Q uit: 08/28/2010 Smokeless Tobacco: Never Alcohol Use Standard Drinks/Week Comments Not Currently 0 (1 standard drink = 0.6 oz pur e alcohol) Sex and Gender Information Value Date Recorded Sex Assigned at Not on file Gender Identity Not on file Sexual Orientation Not on file Obstetrics History Last Filed Vital Signs Vital Sign Reading Time Taken Comments Blood Pressure 112/60 06/25/2023 1:20 PM EDT Pulse 65 06/25/2023 1:20 PM EDT Temperature - - Respiratory Rate - - Oxygen Saturation - - Inhaled Oxygen Concentration - - Weight 118 kg (261 lb) 06/25/2023 1:20 PM EDT Height 170.2 cm (5' 7 ) 06/25/2023 1:20 PM EDT Body Mass Index 40.88 06/25/2023 1:20 PM EDT Plan of Treatment Health Maintenance Due Date Last Done Comments Hepatitis B Vaccines (1 of 3 - 19+ 3-dose series) 2008 Cholesterol Screening (Lipid Panel) 03/13/2022 Depression Screening 03/13/2022 HIV Screening 03/13/2022 Hepatitis C Screening 03/13/2022 Social Influencers of Health Screening 03/13/2022 DTaP,Tdap,and Td Vaccines (2 - Td or Tdap) 07/10/2023 07/09/2013 COVID-19 Vaccine ( season) 2023 Influenza Vaccine (#1) 2023 12/25/2018, 2012 Cervical Cancer Screening: Pap Smear 06/24/2024 06/25/2023, 01/17/2022 MMR Vaccines Aged Out 11/12/2018, 0706/2018, 07/22/2014, Additional history exists No longer eligible based on patient's age to complete this topic HIB Vaccines Aged Out No longer eligi ble based on patient's age to complete this topic HPV Vaccines Aged Out No longer eligi ble based on patient's age to complete this topic Hepatitis A Vaccines Aged Out No long er eligible based on patient's age to complete this topic IPV Vaccines Aged Out No longer eligi ble based on patient's age to complete this topic Meningococcal ACWY Vaccine Aged Out N o longer eligible based on patient's age to complete this topic Pneumococcal Vaccine: Pediatrics (0 to 5 Years) and At-Risk Patients (6 to 64 Years) Aged Out No longer eligible based on patient's age to complete this topic RSV Immunization Patients Under 20 months Aged Out No longer eligible based on patient's age to complete this topic Varicella Vaccines Aged Out No longer eligible based on patient's age to complete this topic Procedures Procedure Name Priority Date/Time Associated Diagnosis Comments PAP SMEAR Routine 06/25/2023 from Last 3 Months or Most Recently Relevant to Health Maintenance Results * Pap smear (06/25/2023) 06/25/2023 Narrative HISTORICAL TESTING LAB RESULTING AGENCY - 07/03/2023 9:25 AM EDT [id number] THINPREP PAP, IMAGED: NEGATIVE FOR SQUAMOUS INTRAEPITHELIAL LESION AND MALIGNANCY . LINDA WHELAN(ASCP) (CASE ELECTRONICALLY SIGNED 07 03 2023) RESULT OF APTIMA HIGH RISK HPV ASSAY: HIGH RISK HPV: ??NEGATIVE (SEROTYPES 16,18,31,33,35,39,45,51,52,56,58,59,66,68) COMPLETED ON 2023-06-27 ADEQUACY: SATISFACTORY ENDOCERVICAL/TRANSFORMATION ZONE COMPONENT PRESENT. SOURCE: THINPREP PAP HPV ANY DX: ??REFLEX 16 AND 18, CERVICAL, IMAGED CLINICAL INFORMATION: HPV ANY DIAGNOSIS. HORMONES, PAP HX POSITIVE LSIL, [[id number]] Kiko Ortega CN LAB CYTOLOGY ORDERAB LES HISTORICAL TESTING LAB RESULTING AGENCY from Last 3 Months or Most Recently Relevant to Health Maintenance Care Teams Combination Machine Tender Relationship Specialty Start Date End Date Ko Lopez MD PCP - General Internal Medicine 12/05/21
[2024-05-12 05:40] LABS: Alanine Aminotransferase 7 U/L (0-31); Albumin Level 3.9 g/dL (3.5-5.0); Alkaline Phosphatase 52 U/L (39-117); Anion Gap 16 (12-20); Aspartate Amino Transferase 20 U/L (5-31); Bilirubin Total 0.6 mg/dL (0.0-1.0); Blood Urea Nitrogen 11 mg/dL (9-16); Carbon Dioxide 19 mmol/L (22-29); Chloride 110 mmol/L (96-108); Creatinine Clr Calc Pharmacy 121.8; Estimated Glomerular Filt Rate > 60; Glucose Random 177 mg/dL (60-115); Lipase 8 U/L (8-78); Potassium 3.7 mmol/L (3.3-5.1); Sodium 141 mmol/L (135-145); Total Protein 7.5 g/dL (6.5-8.0)
[2024-05-12 05:43] LABS: Troponin-I High Sensitivity < 2.7 ng/L (<3.5-17.0)
--- NOTE | 2024-05-12 06:49 | ED.GENADULT ---
HPI - General Adult General Chief complaint: Abdominal Pain Stated complaint: n/v/d Time Seen by Provider: 05/12/24 06:26 Source: patient, EMS, RN notes reviewed and old records reviewed Mode of arrival: EMS Limitations: no limitations History of Present Illness ED Provider: Antwon HPI narrative: Patient is a 33-year-old female presenting to the emergency department with complaint of sudden onset nausea, vomiting and diarrhea which began approximately 4 hours prior to arrival. Also complains of diffuse abdominal pain, worse to upper abdomen. Patient states symptoms feel similar to prior cholecystitis. Medicated with Zofran by EMS without relief. Denies fever. Denies hematemesis, hematochezia or melena. No known sick contacts. MD complaint: Abdominal pain, nausea, vomiting, diarrhea Onset (ago): hour(s) Treatments prior to arrival: other Related Data Home Medications ?Medication ?Instructions ?Recorded ?Confirmed buprenorphine 300 mg/1.5 mL 300 mg subcut QMONTH 05/07/23 05/07/23 solution,exten.rel.subcutaneous syringe (Sublocade) omeprazole 20 mg delayed 40 mg PO DAILY 05/07/23 05/07/23 release,disintegrating tablet Previous Rx's ?Medication ?Instructions ?Recorded acetaminophen 500 mg tablet 1,000 mg (2 x 500 mg) PO QID PRN 06/01/22 (Tylenol Extra Strength) fever or pain #14 tabs ibuprofen 800 mg tablet 800 mg PO Q8H PRN pain #14 tabs 06/01/22 albuterol sulfate 90 mcg/actuation 2 puff inhalation Q4-6H PRN 04/10/23 aerosol inhaler (Ventolin HFA) shortness of breath or wheezing #8.5 grams ondansetron 4 mg disintegrating 4 mg PO Q6-8H PRN nausea and 04/25/23 tablet vomiting #10 tabs docusate sodium 100 mg capsule 100 mg PO BID PRN constipation #30 05/08/23 (Colace) caps oxycodone 5 mg tablet 5 mg PO Q4H PRN pain (scale score 05/08/23 7-10) #24 tabs nystatin 100,000 unit/gram topical 1 appl topical BID #15 grams 05/16/23 cream ondansetron 4 mg disintegrating 4 mg PO Q8H PRN nausea and 05/12/24 tablet vomiting #10 tabs Allergies Allergy/AdvReac Type Severity Reaction Status Date / Time fentanyl [Fentanyl] Allergy Severe RASH Verified 05/12/24 04:58 Penicillins Allergy Mild RASH Verified 05/12/24 04:58 Review of Systems Review of Systems: As per HPI Yes all other systems are reviewed and are negative Constitutional: Constitutional: Reports as per HPI [facility] Past Medical History Medical History Hypothyroidism Surgical History History of laparoscopic cholecystectomy (05/07/23) History of appendectomy S/P gastric sleeve procedure Social History Social History Household Members: Family Housing: Apartment Do you presently have visiting nurse or other home services: No Unable to assess alcohol history related to: Unknown Alcohol intake: never Comment: COUNTS CORRECT Patient Tobacco Use Status: Former Tobacco user Tobacco use type: Cigarette Second Hand Smoke Exposure: No Advance Directives: No Advance Directives Information Provided: Yes Do you have a plan to hurt others: No Plan service: No Physical Exam ED Vital Signs: Vital Signs - 24 hr 05/12/24 05:32 05/12/24 07:13 05/12/24 07:34 Temperature 98.2 F 97.3 F Pulse Rate 66 61 62 Respiratory Rate 16 16 Blood Pressure 147/91 H 137/59 L 145/63 H Pulse Oximetry 100 100 97 Oxygen Delivery Method Room Air Room Air Room Air BMI result Body Mass Index 29.9 Vital signs have been reviewed and appear to be correct. Blood pressure normal. Heart rate normal. Respiratory rate normal. Temperature normal. Oxygen saturation normal. Const General: cooperative, healthy appearing and no acute distress Orientation/consciousness: oriented to person, oriented to place, oriented to time and patient oriented x3 Limitations: no limitations HENMT Head: Yes normocephalic and Yes atraumatic Ears: external ears normal General nose exam: Normal external nose present Face and sinus: Yes face symmetric Mouth: oropharynx normal and moist mucous membranes Throat: Yes uvula midline Eyes Pupils: Equal, round and reactive pupils present Neck Neck: Yes normal visual inspection and Yes supple Resp Effort & Inspection: normal respiratory effort and able to speak in complete sentences Auscultation: clear to auscultation bilaterally Cardio Rate: regular rate Rhythm: regular rhythm Heart sounds: S1 normal heart sound present and S2 normal heart sound present GI Other: Actively vomiting during assessment. Inspection: Yes normal to inspection Palpation (GI): Soft to palpation and nontender Auscultation: normoactive bowel sounds General: Yes no CVA tenderness Back/Spine/Pelvis Back: no CVA tenderness Skin General skin exam: elasticity normal, turgor normal and pallor Neuro General: oriented to person, oriented to place, oriented to time, patient oriented x3, moves all extremities, no focal motor deficits and CN's II-XI intact bilaterally Cranial nerves: Yes Equal, round and reactive pupils present Cognition (Neuro): normal cognition Extrem General: Yes full ROM, Yes no pedal edema and Yes no calf tenderness Psych Mental Status: mental status grossly normal Affect: normal affect Thought process: Normal thought process present Medications Administered Discontinued Medications Generic Name Dose Route Start Last Admin Trade Name Freq PRN Reason Stop Dose Admin Famotidine 20 mg 05/12/24 05:16 05/12/24 05:23 Famotidine/Pf 20 Mg/2 Ml Vial IVPUSH 05/12/24 05:17 20 mg ONCE ONE Administration Sodium Chloride 1,000 mls @ 999 mls/hr 05/12/24 07:00 05/12/24 09:43 Ns IV 05/12/24 08:00 Infused .Q1H1M KEV Infusion Sodium Chloride 1,000 mls @ 999 mls/hr 05/12/24 09:15 05/12/24 09:44 Ns IV 05/12/24 10:15 999 mls/hr .Q1H1M KEV Administration Ondansetron HCl 4 mg 05/12/24 05:16 05/12/24 05:23 Ondansetron Hcl 4 Mg/2 Ml Vial IVPUSH 05/12/24 05:17 4 mg ONCE ONE Administration Prochlorperazine Edisylate 10 mg 05/12/24 06:53 05/12/24 07:13 Prochlorperazine Edisylate 10 Mg/2 Ml Vial IVPUSH 05/12/24 06:54 10 mg ONCE ONE Administration Medical Decision Making Medical Decision Making MDM Narrative: Patient is a 33-year-old female presenting to the emergency department with complaint of sudden onset nausea, vomiting and diarrhea which began approximately 4 hours prior to arrival. On exam patient is awake, A+Ox3, VS WNL, afebrile, normal neurological exam without focal deficits, physical exam findings as above. Given reported symptoms and physical exam findings, initial differential includes but is not limited to viral illness, gastroenteritis, COVID, flu, electrolyte abnormality. Do not suspect ACS. Labs notable for slight leukocytosis likely due to vomiting, no significant electrolyte abnormalities, negative troponin, normal transaminases and T bili. EKG shows NSR. Viral serology positive for Covid. Patient reports improvement in nausea after compazine, would like to trial PO fluids. Provided with ice chips and will give additional liter of IV fluids. Patient able to tolerate ice chips and water. Discussed with patient that it is possible she is positive for COVID and has secondary viral gastroenteritis. Advised her to ensure adequate rest, adequate fluid intake. Will send prescription for Zofran. Discussed with patient and progressing slowly from clear liquid diet to bland diet back to regular diet as tolerated. Return precautions discussed with patient and at bedside. Patient verbalized understanding of and agreement with plan. Differential Diagnosis Differential Diagnoses: The differential diagnosis associated with the presentation includes As per [facility]. Admission/Observation Consideration of admission/observation: Escalation of care including admission/observation considered Patient would have been admitted to the hospital had their work up had any findings where hospital admission was appropriate and their clinical presentation warranted hospital admission. Lab Data [facility] Lab Attestation statement: I reviewed the patient's lab results. As per [facility] 05/12/24 05:12 05/12/24 05:12 Labs: Lab Results 05/12/24 05/12/24 Range/Units 05:12 07:35 WBC 12.2 H (4.8-10.8) X10*3/uL RBC 4.54 (4.20-5.50) X10*6/uL Hgb 14.0 (12.0-16.0) g/dl Hct 38.4 (37.0-47.0) % MCV 84.6 (80.0-98.0) fL MCH 30.8 (27.0-33.0) pg MCHC 36.5 H (31.0-35.0) g/dl RDW 11.4 (11.0-16.0) % Plt Count 307 D (160-400) X10*3/uL MPV 10.4 (9.4-12.3) fL Immature Gran % (Auto) 0.3 (0.0-0.4) % Neut % (Auto) 81.4 H (45-73) % Lymph % (Auto) 12.8 L (20-40) % [place] % (Auto) 5.0 (2-11) % Eos % (Auto) 0.3 (0-4) % Baso % (Auto) 0.2 (0-2) % Lymph # (Auto) 1.6 (1.2-4.9) X10*3/uL [place] # (Auto) 0.6 (0.1-1.2) X10*3/uL Eos # (Auto) 0.0 (0.0-0.4) X10*3/uL Baso # (Auto) 0.0 (0.0-0.2) X10*3/uL Abs Immat Gran (auto) 0.04 H (0.00-0.03) X10*3/uL Absolute Neuts (auto) 9.9 H (2.0-8.3) x10*3/uL Absolute Nucleated RBC 0.000 (0.0-0.012) X10*3/uL Nucleated RBC % (auto) 0.0 (0.0-0.2) /100WBC Sodium 141 (135-145) mmol/L Potassium 3.7 (3.3-5.1) mmol/L Chloride 110 H (96-108) mmol/L Carbon Dioxide 19 L (22-29) mmol/L Anion Gap 16 (12-20) BUN 11 (9-16) mg/dL Creatinine 0.71 (0.5-1.4) mg/dL Estim Creat Clear Calc 121.8 Estimated GFR > 60 Random Glucose 177 H (60-115) mg/dL Calcium 9.0 (8.4-10.2) mg/dL Total Bilirubin 0.6 (0.0-1.0) mg/dL AST 20 (5-31) U/L ALT 7 (0-31) U/L Alkaline Phosphatase 52 (39-117) U/L Troponin I High Sens < 2.7 (<3.5-17.0) ng/L Total Protein 7.5 (6.5-8.0) g/dL Albumin 3.9 (3.5-5.0) g/dL Lipase 8 (8-78) U/L Influenza Type A (PCR) NEGATIVE (Negative) Influenza Type B (PCR) NEGATIVE (Negative) RSV RNA Qual (PCR) NEGATIVE (Negative) SARS-CoV-2 RNA (RT-PCR) POSITIVE A (Negative) Independent Interpretation I performed an independent interpretation of an: EKG (Normal sinus rhythm, rate 65 beats per minute, normal TX interval and QTC) Independent Historian Clinical information obtained from an independent historian. History obtained from or confirmed by: Spouse External Record Review External record reviewed: Inpatient record, Office record and Outpatient record Prescription Management I considered prescription management with: Other Discharge Plan Discharge Clinical Impression: COVID-19, Nausea, vomiting, and diarrhea Patient Disposition: Home, Self-Care Instructions: Acute Nausea and Vomiting (ED), Acute Diarrhea (ED), COVID-19 (Coronavirus Disease 2019) (ED) Additional Instructions: You were evaluated in the emergency department today for nausea, vomiting, diarrhea and abdominal pain. You tested positive for COVID-19. This is a viral illness which will resolve on its own with time and rest. It is possible that your nausea, vomiting, and diarrhea are due to a 2nd viral infection. You are being prescribed ondansetron for nausea. We recommend adequate rest adequate fluid intake, especially fluids with electrolytes such as Pedialyte, Gatorade, etc. Stick to clear liquids today until your symptoms improve. If you are feeling better tomorrow you can progress to a bland diet. You can take Tylenol or ibuprofen as needed for pain or fevers. You can also use over the counter Maalox for abdominal pain. Follow up with your primary care provider this week. Return to the emergency department if you develop worsening abdominal pain, persistent vomiting, fever not improved with Tylenol or ibuprofen, if you notice blood in your vomit or stool, Prescriptions: New ondansetron 4 mg tablet,disintegrating 4 mg PO Q8H PRN (Reason: nausea and vomiting) Qty: 10 0RF No Action acetaminophen [Tylenol Extra Strength] 500 mg tablet 1,000 mg PO QID PRN (Reason: fever or pain) Qty: 14 0RF ibuprofen 800 mg tablet 800 mg PO Q8H PRN (Reason: pain) Qty: 14 0RF albuterol sulfate [Ventolin HFA] 90 mcg/actuation HFA aerosol inhaler 2 puff inhalation Q4-6H PRN (Reason: shortness of breath or wheezing) Qty: 8.5 0RF ondansetron 4 mg tablet,disintegrating 4 mg PO Q6-8H PRN (Reason: nausea and vomiting) Qty: 10 0RF omeprazole 20 mg tablet,disintegrat, delay rel 40 mg PO DAILY Sublocade 300 mg/1.5 mL solution, extended rel syringe 300 mg subcut QMONTH docusate sodium [Colace] 100 mg capsule 100 mg PO BID PRN (Reason: constipation) Qty: 30 0RF oxycodone 5 mg tablet 5 mg PO Q4H PRN (Reason: pain (scale score 7-10)) Qty: 24 0RF Rx Instructions: Partial Fill upon patient request. nystatin 100,000 unit/gram cream 1 appl topical BID Qty: 15 0RF Stand Alone Forms: Work/School Release Print Language: Dutch
[2024-05-12] MEDS: 0.9 % Sodium Chloride 1,000 ML 999 ML IV ×2 (07:11→09:44)
[2024-05-12 07:13] VITALS: BP 137/59; PULSE 61; RESP 16; TEMP 36.3; O2SAT 100
[2024-05-12] MEDS: Prochlorperazine Edisylate 10 MG/2 ML VIAL IVPUSH (07:13)
[2024-05-12 07:34] VITALS: BP 145/63; PULSE 62; O2SAT 97
[2024-05-12 08:21] LABS: Influenza A PCR NEGATIVE (Negative); Influenza B PCR NEGATIVE (Negative); Resp Syncy Virus RNA Qual PCR NEGATIVE (Negative); SARS COV2 PCR INHOUSE POSITIVE (Negative)
[2024-05-12 10:36] VITALS: BP 122/63; PULSE 57; RESP 20; TEMP 36.3; O2SAT 100
[2024-05-12 10:47] VITALS: BP 122/63; PULSE 57; RESP 20; TEMP 36.3; O2SAT 100
== END 2024-05-12 10:48 | disposition home or self-care (01) ==
PROVIDERS: Registered Nurse Emergency; Emergency Provider Emergency Medicine Emergency Medical Services; PCP Internal Medicine
DX: U07.1 COVID-19 (principal); R11.2 Nausea with vomiting, unspecified; R19.7 Diarrhea, unspecified
CPT/HCPCS: 0241U; 36415; 80053; 83690; 84484; 85025; 93005; 96361; 96374; 96375; 99284; J0737; J2405

== ENCOUNTER → 2024-05-12 04:54 | Outpatient (BNV) | payer OTHER, SELFPAY | PROVIDERS: Emergency Provider Emergency Medicine Emergency Medical Services; PCP Internal Medicine; Visit Provider Internal Medicine | DX: R11.2 Nausea with vomiting, unspecified (principal) | CPT/HCPCS: 93010 ==